=== PATIENT | female | born 1990 | race Caucasian/White ===

== ENCOUNTER 2023-07-25 13:01 | Outpatient (OUT) | payer OTHER, SELFPAY ==
[2023-07-25 14:13] LABS: Estimated Average Glucose 100 mg/dL; Glycohemoglobin A1C 5.1 % (4.5-6.2)
[2023-07-25 14:27] LABS: Thyroid Stimulating Hormone 1.393 uIU/mL (0.358-3.740)
[2023-07-26 04:10] LABS: Prolactin 6.4 ng/mL (4.8-23.3)
[2023-07-26 06:12] LABS: HCV Ab Non Reactive (Non Reactive); HIV Ab/p24 Ag Screen Non Reactive (Non Reactive); Rubella Antibodies, IgG <0.90 index (Immune >0.99); Varicella-Zoster V Ab, IgG 1291 index (Immune >165)
[2023-07-26 07:14] LABS: HBsAg Screen Negative (Negative); Hep B Core Ab, Tot Negative (Negative)
[2023-07-26 12:13] LABS: Rapid Plasma Reagin, Quant Non Reactive (NonRea<1:1)
[2023-07-27 00:06] LABS: Neisseria gonorrhoeae, NAA Negative (Negative)
[2023-07-28 18:08] LABS: Anti-Mullerian Hormone (AMH) 0.312 ng/mL (.)
== END 2023-07-25 13:02 | disposition home or self-care (01) ==
LOC: LAB 13:08
PROVIDERS: PCP Internal Medicine
DX: E28.9 Ovarian dysfunction, unspecified (principal); Z11.3 Encounter for screening for infections with a predominantly sexual mode of transmission
CPT/HCPCS: 36415; 81241; 82306; 83036; 84146; 84443; 85210; 86592; 86704; 86762; 86787; 86803; 86850; 86900; 86901; 87340; 87389; 87491; 87591

== ENCOUNTER 2024-07-29 10:59 | Emergency (ER) | payer OTHER, SELFPAY ==
[2024-07-29 11:05] VITALS: BP 112/76; PULSE 123; TEMP 36.7; O2SAT 96; BMI 23.0
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
== END 2024-07-29 13:02 | disposition home or self-care (01) ==
PROVIDERS: Emergency Provider Emergency Medicine; PCP Internal Medicine
DX: S16.1XXA Strain of muscle, fascia and tendon at neck level, initial encounter (principal); C95.90 Leukemia, unspecified not having achieved remission; V49.40XA Driver injured in collision with unspecified motor vehicles in traffic accident, initial encounter
CPT/HCPCS: 70450; 71045; 72125; 73030; 99285

== ENCOUNTER 2024-11-28 13:23 | Outpatient (OUT) | payer OTHER, SELFPAY ==
--- NOTE | 2024-11-28 13:37 | ECG_ITS ---
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
== END 2024-11-28 13:24 | disposition home or self-care (01) ==
LOC: CARD 13:24
PROVIDERS: PCP Internal Medicine; Visit Provider Internal Medicine Hematology & Oncology
DX: C92.10 Chronic myeloid leukemia, BCR/ABL-positive, not having achieved remission (principal); G89.29 Other chronic pain
CPT/HCPCS: 93005

== ENCOUNTER 2025-10-02 19:13 | Outpatient (REF) | payer OTHER, SELFPAY ==
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
--- OUTSIDE RECORDS SUMMARY | 2025-10-02 19:23 | XMS_ITS | CCD ---
Author Organization [facility] CliniSysd Care Team Providers Care Property Master Name Role Phone PHYSICIAN, DEFAULT Admitting Unavailable PHYSICIAN, DEFAULT Attending Unavailable FABY ., DR PACHECO Admitting Unavailable FABY ., DR PACHECO Attending Unavailable MISC, DR VILLALOBOS Primary Care Unavailable FABY ., DR PACHECO Consulting Unavailable Ender Earl Consulting Unavailable MAYUR, JACLYN Admitting Unavailable MAYUR, JACLYN Attending Unavailable MISC, DR VILLALOBOS Primary Care Unavailable JACLYN MERCHANT Consulting Unavailable FABY ., DR PACHECO Admitting Unavailable FABY ., DR PACHECO Attending Unavailable MISC, DR VILLALOBOS Primary Care Unavailable FABY ., DR PACHECO Consulting Unavailable Angela Parada MD Primary Care Provider Angela Parada MD Primary Care Provider LUKE CRAMER Referring Unavailable HIDAIN, ANGELA Seymour Primary Care Unavailable BELA, LUKE Fierro Referring Unavailable HIESTSTEW, ANGELA Seymour Primary Care Unavailable BELA, LUKE Fierro Attending Unavailable TAL, ANGELA Seymour Referring Unavailable ANGELA PARADA Primary Care Unavailable LUKE CRAMER Attending Unavailable ANGELA PARADA Referring Unavailable ANGELA PARADA Primary Care Unavailable ANGELA PARADA Attending Unavailable ANGELA PARADA Referring Unavailable TAL, ANGELA Seymour Primary Care Unavailable TAL, ANGELA Seymour Attending Unavailable ANGELA PARADA Referring Unavailable ANGELA PARADA Primary Care Unavailable Angela Parada MD Primary Care Provider [phone] CATHI MARTINEZ Attending Unavailable Allergies Allergy ClassificationReported Allergen(s)Allergy TypeDate of OnsetReaction(s) Facility (4 sources)Latex; Translations: [LATEX]Drug allergy (disorder)48-44-2249Xty [facility] Repository (1 source)levoFLOXacinDrug AllergyThe [facility] Repository (20 sources)Ketorolac; Translations: [KETOROLAC]Drug Xbycvax95-44-1986Jpuew [facility] (20 sources)LatexPropensity to adverse reactions to fkrp60-32-5196[facility] (20 sources)levoFLOXacin; Translations: [LEVOFLOXACIN]Drug Xydbnnl71-77-6759 [facility] (3 sources)Ketorolac trometamolPropensity to adverse weyojwxbo24-42-2328[facility] Work Phone: (3 sources)LatexAllergy to hzmrvupxr96-05-9434[facility] Medications Current Medications MedicationDrug Class(es)DatesSig (Normalized)Sig (Original)cefadroxil 1000 mg oral tablet (1 source)Cephalosporin AntibacterialStart: 07-11-2025 End: 99-54-4858kwsfwcwido (DURICEF) 1 gram tablet Indications: Tonsillitis Take 1 tablet (1 g total) by mouth in the morning for 10 days. 10 tablet 07/11/2025 07/11/2025 Discontinuedcephalexin 500 mg oral capsule (2 sources)Cephalosporin AntibacterialStart: 07-11-2025 End: 04-88-2189xath 1 capsule by mouth three times dailyCEPHalexin (KEFLEX) 500 mg capsule Take 1 capsule (500 mg total) by mouth 3 (three) times a day for10 days. 30 capsule 07/11/2025 07/21/2025 Activecetirizine hydrochloride 10 mg oral tablet (20 sources)Histamine-1 Receptor Antagonisttake 1 tablet by mouth in the morning cetirizine (ZyrTEC) 10 mg tablet Take 1 tablet (10 mg total) by mouth in the morning. Activecetirizine (ZyrTEC) 5 MG chewable tablet Chew Daily Active dasatinib 80 mg oral tablet (20 sources)Kinase InhibitorStart: 43-41-7577txjb 1 tablet by mouth once daily dasatinib (SpryceL) 80 mg chemo tablet Take 1 tablet by mouth daily 30 tablet 11 07/23/2025 ActiveStart: 58-76-2763slik 1 tablet by mouth once dailydasatinib (SpryceL) 50 mg chemo tablet Indications: CML (chronic myeloid leukemia) ([facility]- HCC) Take 1tablet by mouth daily 30 tablet 11 05/30/2025 ActiveStart: 04-05-2024 End: 35-77-5343pcdktecxs (SPRYCEL) 80 mg chemo tablet Indications: CML (chronic myeloid leukemia) ([facility]-HCC) TAKE 1TABLET DAILY 30 tablet 11 03/24/2025 Active escitalopram 20 mg oral tablet (20 sources)Serotonin Reuptake InhibitorStart: 67-69-5530jbcmccqzcylz (Lexapro) 20 MG tablet Take 30 mg by mouth in the morning. 05/05/2025 ActiveStart: 05-10-2024 End: 36-10-5978wasr 1.5 tablets by mouth in the morningescitalopram (LEXAPRO) 20 mg tablet Take 1.5 tablets (30 mg total) by mouth in the morning. 135 tablet 05/05/2025 Activeethinyl estradiol 0.035 mg / norethindrone acetate 1 mg oral tablet (20 sources)EstrogenStart: 74-88-0108iiqb 1 tablet by mouth once daily in the morningAlyacen 1/35 1-35 MG-MCG tablet Indications: control counseling TAKE 1 TABLET BY MOUTH EVERY DAY IN THE MORNING 84 tablet 3 04/23/2025 Active take 1 tablet by mouth in the morning, then take 0.05871812314751215 tablet by mouth oncenorethindrone-ethin estradioL (ALYACEN 1/35, 28,) 1-35 mg-mcg per tablet Take 1 tablet by mouth in the morning. Activefurosemide 40 mg oral tablet (20 sources)Loop DiureticStart: 11-25-2023 End: 47-97-6458tbpw 1 tablet by mouth once daily as neededfurosemide (LASIX) 40 mg tablet TAKE 1 TABLET (40 MG TOTAL) BY MOUTH DAILY NEEDED (SWELLING). 20 tablet 3 01/03/2025 Activegabapentin 300 mg oral capsule (20 sources)Anti-epileptic AgentStart: 09-19-2024 End: 18-79-7465gzhu 1 capsule by mouth three times dailygabapentin (NEURONTIN) 300 mg capsule Indications: Strain of left trapezius muscle, subsequent encou nter Take 1 capsule (300 mg total) by mouth 3 (three) times a day. 270 capsule 06/02/2025 Activemethocarbamol 750 mg oral tablet (20 sources)Muscle RelaxantStart: 08-30-2024 End: 75-81-5082zuwz 1 tablet by mouth every six hours as neededmethocarbamoL (ROBAXIN) 750 mg tablet Take 1 tablet (750 mg total) by mouth every 6 (six) hours as needed for muscle spasms. 20 tablet 08/30/2024 07/11/2025 Discontinued morphine sulfate 15 mg extended release oral tablet (20 sources)Opioid AgonistStart: 87-21-8606brkv 1 tablet by mouth three times dailymorphine (MS CONTIN) 15 mg 12 hr tablet Indications: CML (chronic myeloid leukemia) (CMS-HCC) , Pain, cancer Take 1 tablet (15 mg total) by mouth 3 (three) times a day. Max Daily Amount: 45 mg 90 tablet 08/19/2025 ActiveStart: 12-04-2024 End: 70-49-9183mryl 1 tablet by mouth three times dailymorphine CR (MS Contin) 15 MG 12 hr tablet TAKE 1 TABLET (15 MG TOTAL) BY MOUTH 3 (THREE) TIMES A DAY. MAX DAILY AMOUNT: 45 MG30 DAY SUPPLY 07/22/2025 ActiveStart: 10-24-2024 End: 92-78-8226vuwv 1 tablet by mouth three times dailymorphine (MS CONTIN) 15 mg 12 hr tablet Indications: CML (chronic myeloid leukemia) (CMS-HCC) , Pain, cancer Take 1 tablet (15 mg total) by mouth 3 (three) times a day. Max Daily Amount: 45 mg 90 tablet 11/21/2024 Activeomeprazole 20 mg delayed release oral capsule (20 sources)Proton Pump Inhibitortake 1 capsule by mouth in the morning as neededomeprazole (PriLOSEC) 20 mg capsule Take 1 capsule (20 mg total) by mouth in the morning. As needed. ActiveoxyCODONE hydrochloride 15 mg oral tablet (20 sources)Opioid AgonistStart: 32-11-5896lwrc 1 tablet by mouth five times dailyoxyCODONE (ROXICODONE) 15 mg immediate release tablet Indications: CML (chronic myeloid leukemia) (CMS-HCC) , Pain, cancer Take 1 tablet (15 mg total) by mouth 5 (five) times a day. Max Daily Amount:75 mg 150 tablet 08/19/2025 ActiveStart: 10-24-2024 End: 75-34-7972hsze 1 tablet by mouth five times dailyoxyCODONE (Roxicodone) 15 MG immediate release tablet TAKE 1 TABLET (15 MG TOTAL) BY MOUTH 5 (FIVE)TIMES A DAY. MAX DAILY AMOUNT: 75 MG30 DAY SUPPLY 07/30/2025 Active Problems Active Problems Problem ClassificationProblemDateDocumented DateEpisodic/ChronicAcute and chronic tonsillitis (8 sources)Amygdalolith; Translations: [Other chronic diseases of tonsils and adenoids]03-03-4089AvjfmvnVvega and chronic tonsillitis (1 source)Tonsillitis; Translations: [Acute tonsillitis, unspecified]07-11-2025 EpisodicAnxiety disorders (20 sources)Anxiety; Translations: [Anxiety disorder, unspecified]Onset: 321022-01-9839ExvsbjjXwueogqkocrem and screening for infectious disease (1 source)Encounter for screening for human papillomavirus (HPV); Translations: [ENC SCREENING HUMAN PAPILLOMAVIRUS]Onset: 80-39-7509EibkzxfnIfxnybxea (20 sources)Chronic myeloid leukemia; Translations: [Chronic myeloid leukemia, BCR/ABL-positive, not having achieved remission]Onset: ChronicMenstrual disorders (7 sources)Amenorrhea, unspecified; Translations: [Amenorrhea]Onset: 02-24-2023 ChronicMood disorders (20 sources)Depressive disorder; Translations: [Depression]Onset: 08-04-2025 16-89-7281UdekrfwHhjha nervous system disorders (13 sources)Pain due to neoplastic disease; Translations: [Neoplasm related pain (acute) (chronic)]65-96-4285EceuavtZigqb nervous system disorders (20 sources)Chronic pain; Translations: [Other chronic pain]Onset: 10-30-2020 03-32-7669LqtvuwcRnjvn nervous system disorders (1 source)Other chronic pain; Translations: [Other chronic pain]Onset: 05-15-5678FjtradxQqzlq nervous system disorders (1 source)Neoplasm related pain (acute) (chronic); Translations: [Neoplasm related pain (acute) (chronic)]Onset: 09-46-5358GminblfFpmmg screening for suspected conditions (not mental disorders or infectious disease) (4 sources)Encounter for screening for malignant neoplasm of cervix; Translations: [ENC SCREENING MALIG NEOPLASM CERV]Onset: 59-08-8012NitqvaxdAzyjl upper respiratory disease (1 source)Pain in throatOnset: 37-43-9868IahryfykFtaakwww codes; unclassified (1 source)Chronic qwst92-32-6698AqyayqtmFdkalzy and strains (3 sources)Strain of left trapezius muscle; Translations: [Strain of other muscles, fascia and tendons at shoulder and upper arm level, left arm, subsequent encounter]84-57-8138Zkethdkv Past or Other Problems Problem ClassificationProblemDateDocumented DateEpisodic/ChronicMood disorders (20 sources)Mood disordersOnset: 03-23-2023 Resolved: Results Test NameValueInterpretationReference RangeFacilityBCR/ABL BY PCR WITH REFLEXon 18-85-1397CPM ABL BY PCR QUALSEE COMMENTSNormalProMedica Toledo HospitalComment on above:Result Comment: Test Result Flag Unit RefValue BCR/ABL1 Reflex, Qual/Quant Specimen Type blood BCR/ABL1 Reflex Result see interpretation Interpretation SEE COMMENTS Peripheral blood, BCR/ABL1 mRNA analysis, qualitative: Negative. No BCR/ABL1 mRNA transcripts were detected. Method summary: The presence or absence of BCR/ABL1 mRNA transcripts was evaluated using a qualitative, reverse comb setter PCR-based assay. The assay detects nearly all published and theoretical BCR/ABL1 fusion forms including the common e13/e14-a2 (p210) and e1-a2 (p190) transcripts, as well as other rarer variants (e.g. e19-a2 (p230), e13/e14-a3, e1-a3, etc.). The limit of detection for this assay is 0.1%. Please contact the lab at [phone] with questions or if additional testing is required. See [facility] Test Catalog for additional method details. Signing Pathologist: Silvano Pelayo M.D. ADDITIONAL INFORMATION This test was developed and its performance characteristics determined by [facility] in a manner consistent with CLIA requirements. This test has not been cleared or approved by the U.S. Food and Drug Administration. Test Performed by: [facility] - [address] [address] Circus Laborer: Silva Montalvo Ph.D.; CLIA# [id number] By: #### BCRFX #### [facility] ([facility]) [address] [place] [address] VIRCBC WITH AUTO DIFFERENTIALon 77-80-4904GLXNKFXRB ABSOLUTE COUNT (10*3/UL) BY AUTOMATED COUNT0.1 10*3/uLNormal0.0-0.2ProMedica [place]edo HospitalComment on above:Order Comment: Abnormal CBC with auto diff reflexes to a manual diffPerformed By: #### CBCA #### [facility] ([facility]) [address] [place] [address] VIRBASOPHILS RELATIVE PERCENT BY AUTOMATED COUNT0.8 %Normal [facility] HospitalComment on above:Order Comment: Abnormal CBC with auto diff reflexes to a manual diffPerformed By: #### CBCA #### [facility] ([facility]) [address] [place] [address] VIRCELLAVISION DIFFERENTIAL TYPEAUTOMATED DIFFERENTIALNormal [facility] HospitalComment on above:Order Comment: Abnormal CBC with auto diff reflexes to a manual diffPerformed By: #### CBCA #### [facility] ([facility]) [address] [place] [address] VIREosinophils (Bld) [#/Vol]0.2 10*3/uLNormal0.0-0.4ProCoshocton Regional Medical Centerca Toledo HospitalComment on above:Order Comment: Abnormal CBC with auto diff reflexes to a manual diffPerformed By: #### CBCA #### [facility] ([facility]) [address] [place] [address] VIREOSINOPHILS RELATIVE PERCENT BY AUTOMATED COUNT3.1 %Normal [facility] HospitalComment on above:Order Comment: Abnormal CBC with auto diff reflexes to a manual diffPerformed By: #### CBCA #### [facility] ([facility]) [address] [place] [address] VIRErythrocyte distribution width (RBC) [Ratio]14.2 %Normal 11.5-15ProGreene Memorial HospitalComment on above:Order Comment: Abnormal CBC with auto diff reflexes to a manual diffPerformed By: #### CBCA #### [facility] ([facility]) [address] [place] [address] VIRHematocrit (Bld) [Volume fraction]44.9 %Rbguug15-63DrxKxycbpGreene Memorial HospitalComment on above:Order Comment: Abnormal CBC with auto diff reflexes to a manual diffPerformed By: #### CBCA #### [facility] ([facility]) [address] [place] [address] VIRHemoglobin (Bld) [Mass/Vol]15.5 g/wONudhbo77.7-15.5PMercy Health Kings Mills HospitalCombeaumont hospital on above:Order Comment: Abnormal CBC with auto diff reflexes to a manual diffPerformed By: #### CBCA #### [facility] ([facility]) [address] [place] [address] VIRLYMPHOCYTES ABSOLUTE COUNT (10*3/UL) BY AUTOMATED COUNT3.2 10*3/uLNormal1.0-3.5PMercy Health Kings Mills HospitalCombeaumont hospital on above:Order Comment: Abnormal CBC with auto diff reflexes to a manual diffPerformed By: #### CBCA #### [facility] ([facility]) [address] [place] [address] VIRLYMPHOCYTES RELATIVE PERCENT BY AUTOMATED COUNT45.7 %Normal [facility] HospitalComment on above:Order Comment: Abnormal CBC with auto diff reflexes to a manual diffPerformed By: #### CBCA #### [facility] ([facility]) [address] [place] [address] VIRH (RBC) [Entitic mass]34.0 thNqnwff04-57JeaKazvxtGreene Memorial HospitalComment on above:Order Comment: Abnormal CBC with auto diff reflexes to a manual diffPerformed By: #### CBCA #### [facility] ([facility]) [address] [place] [address] VIRMCHC (RBC) [Mass/Vol]34.5 g/mFShcvsi90-72GezXzitdkGreene Memorial HospitalComment on above:Order Comment: Abnormal CBC with auto diff reflexes to a manual diffPerformed By: #### CBCA #### [facility] ([facility]) [address] [place] [address] VIRV (RBC) [Entitic vol]99 xECjejyy93-501RrzSnizjeGreene Memorial HospitalComment on above:Order Comment: Abnormal CBC with auto diff reflexes to a manual diffPerformed By: #### CBCA #### [facility] ([facility]) [address] [place] [address] VIRMONOCYTES ABSOLUTE COUNT (10*3/UL) BY AUTOMATED COUNT0.3 10*3/uLNormal0.0-0.9[facility] HospitalComment on above:Order Comment: Abnormal CBC with auto diff reflexes to a manual diffPerformed By: #### CBCA #### [facility] ([facility]) [address] [place] [address] VIRMONOCYTES RELATIVE PERCENT BY AUTOMATED COUNT4.0 %Normal ProMMcKitrick HospitalComment on above:Order Comment: Abnormal CBC with auto diff reflexes to a manual diffPerformed By: #### CBCA #### [facility] ([facility]) [address] [place] [address] VIRNEUTROPHILS ABSOLUTE COUNT BY AUTOMATED COUNT3.2 10*3/uL Normal1.5-6.6ProGreene Memorial HospitalComment on above:Order Comment: Abnormal CBC with auto diff reflexes to a manual diffPerformed By: #### CBCA #### [facility] ([facility]) [address] [place] [address] VIRNEUTROPHILS RELATIVE PERCENT BY AUTOMATED COUNT46.4 %Normal [facility] HospitalCombeaumont hospital on above:Order Comment: Abnormal CBC with auto diff reflexes to a manual diffPerformed By: #### CBCA #### [facility] ([facility]) [address] [place] [address] VIRPlatelet mean volume (Bld) [Entitic vol]7.5 fLNormal7-12 [facility] HospitalCombeaumont hospital on above:Order Comment: Abnormal CBC with auto diff reflexes to a manual diffPerformed By: #### CBCA #### [facility] ([facility]) [address] [place] [address] VIRPlatelets (Bld) [#/Vol]350 10*3/gUEgssap052-854VueZmptsxGreene Memorial HospitalComment on above:Order Comment: Abnormal CBC with auto diff reflexes to a manual diffPerformed By: #### CBCA #### [facility] ([facility]) [address] [place] [address] VIRRBC COUNT4.55 X10E12/LNormal3.8-5.2Pro[facility] HospitalCombeaumont hospital on above:Order Comment: Abnormal CBC with auto diff reflexes to a manual diffPerformed By: #### CBCA #### [facility] ([facility]) [address] [place] [address] VIRWBC (Bld) [#/Vol]7.0 10*3/uLNormal4-11ProGreene Memorial HospitalCombeaumont hospital on above:Order Comment: Abnormal CBC with auto diff reflexes to a manual diffPerformed By: #### CBCA #### [facility] ([facility]) [address] [place] [address] VIRCOMPREHENSIVE METABOLIC PANELon 85-48-3495Gtcopfa [Mass/Vol] 4.5 g/dLNormal3.2-5.3PProMedica Toledo Hospital HospitalComment on above: Performed By: #### CMP #### [facility] ([facility]) [address] [place] [address] VIRALP [Catalytic activity/Vol]48 U/PEejlwy36-633AtjBqszlyVan Wert County Hospital HospitalComment on above:Performed By: #### CMP #### [facility] ([facility]) [address] [place] [address] VIRALT [Catalytic activity/Vol]27 U/LNormal<=31PProMedica [facility] Hospital HospitalComment on above:Performed By: #### CMP #### [facility] ([facility]) [address] [place] [address] VIRAnion gap [Moles/Vol]10 mmol/LNormal5-15ProVan Wert County Hospital HospitalComment on above:Performed By: #### CMP #### [facility] ([facility]) [address] [place] [address] VIRAST [Catalytic activity/Vol]24 U/LNormal<=41ProGreene Memorial HospitalComment on above:Performed By: #### CMP #### [facility] ([facility]) [address] [place] [address] VIRBilirubin [Mass/Vol]0.3 mg/dLNormal0.3-1.2PProMedica [facility]edo Hospital HospitalComment on above:Performed By: #### CMP #### [facility] ([facility]) [address] [place] [address] VIRCalcium [Mass/Vol]9.2 mg/dLNormal8.5-10.5PProMedica Toledo Hospital HospitalComment on above:Performed By: #### CMP #### [facility] ([facility]) [address] [place] [address] VIRChloride [Moles/Vol]106 mmol/QCeyydi58-734HmcDzmavtGreene Memorial HospitalComment on above:Performed By: #### CMP #### [facility] ([facility]) [address] [place] [address] VIRCO2 [Moles/Vol]26 mmol/ELgwjqe28-74BdmJeyjdwBethesda North HospitalComment on above:Performed By: #### CMP #### [facility] ([facility]) [address] [place] [address] VIRCreatinine [Mass/Vol]0.87 mg/dLNormal0.40-1.00ProGreene Memorial HospitalComment on above:Result Comment: METHOD TRACEABLE TO IDMS STANDARDPerformed By: #### CMP #### [facility] ([facility]) [address] [place] [address] VIRGFR/1.73 sq M.predicted among non-blacks MDRD (S/P/Bld) [Vol rate/Area]90 mL/min/{1.73_m2}Normal>=60[facility] Comment on above:Result Comment: Reported eGFR is based on the CKD-EPI 2020 equation that does not use a race coefficient.Performed By: #### CMP #### [facility] ([facility]) [address] [place] [address] VIRGlucose [Mass/Vol]96 mg/fXUjkjdn29-31ZexAofaglGreene Memorial HospitalComment on above:Performed By: #### CMP #### [facility] ([facility]) [address] [place] [address] VIRPotassium [Moles/Vol]4.2 mmol/LNormal3.5-5.0ProGreene Memorial HospitalComment on above:Performed By: #### CMP #### [facility] ([facility]) [address] [place] [address] VIRProtein [Mass/Vol]7.4 g/dLNormal6.0-8.0[facility] HospitalComment on above:Performed By: #### CMP #### [facility] ([facility]) [address] [place] [address] VIRSodium [Moles/Vol]142 mmol/CEvhqil155-897WvtUbfnljVan Wert County Hospital HospitalComment on above:Performed By: #### CMP #### [facility] ([facility]) [address] [place] [address] VIRUrea nitrogen [Mass/Vol]13 mg/dLNormal5-23ProVan Wert County Hospital HospitalComment on above:Performed By: #### CMP #### [facility] ([facility]) [address] [place] [address] VIRCBC AND AUTO DIFFon 39-49-6091WIRFSFWG BASOPHIL0.0 X10E9/L Normal0.0-0.2Pro[facility] HospitalComment on above:Performed By: #### [id number] #### [facility] ([id number]) [address] [place] [address] #### CMP, CBCA #### [facility] ([id number]) [address] [place], [place] [address]WVRDGEEN NEUTROPHIL3.5 X10E9/LNormal1.5-6.6ProGreene Memorial HospitalComment on above:Performed By: #### 75935-6 #### [facility] ([id number]) [address] [place] [address] #### CMP, CBCA #### [facility] ([id number]) [address] [place], [place] [address]Nzotapcqq/100 WBC (Bld)0.6 %NormalProGreene Memorial HospitalComment on above:Performed By: #### [id number] #### [facility] ([id number]) [address] [place], [place] [address] #### CMP, CBCA #### [facility] ([id number]) [address] [facility], [address] [place], [place] [address]Fanahtsjoas (Bld) [#/Vol]0.3 10*3/uLNormal0.0-0.4ProGreene Memorial HospitalComment on above:Performed By: #### 75420-1 #### [facility] ([id number]) [address] [place], [place] [address] #### CMP, CBCA #### [facility] ([id number]) [address] [facility] [facility], [address] [place], [place] [address]Dbevrmhxulk/100 WBC (Bld)3.6 %NormalProGreene Memorial HospitalComment on above:Performed By: #### 07400-2 #### [facility] ([id number]) [address] [place], [place] [address] #### CMP, CBCA #### [facility] ([id number]) [address] [place] [address], [address] [place], [place] [address]Zacshcsbzvt distribution width (RBC) [Ratio]13.3 %Normal 11.5-15.0ProGreene Memorial HospitalComment on above:Performed By: #### 09171-0 #### [facility] ([id number]) [address] [place], [place] [address] #### CMP, CBCA #### [facility] ([id number]) [address] [facility], [address] [place], [place] [address]Atgzfkewvt (Bld) [Volume fraction]40.5 %Hhidtk75-02XpcWdmkxrGreene Memorial HospitalComment on above:Performed By: #### 18309-8 #### [facility] ([id number]) [address] [place], [place] [address] #### CMP, CBCA #### [facility] ([id number]) [address] [place] [address], [address] [place], [place] [address]Bshvisculy (Bld) [Mass/Vol]14.1 g/uVHixtcw48.7-15.5ProMedParkview Health HospitalComment on above:Performed By: #### 28484-0 #### [facility] ([id number]) [address] [place] [address] #### CMP, CBCA #### [facility] ([id number]) [address], [address] [place], [place] [address]Kpdaqvvkqas (Bld) [#/Vol]3.3 10*3/uLNormal1.0-3.5PMercy Health Kings Mills HospitalComment on above:Performed By: #### 31076-5 #### [facility] ([id number]) [address] [place] [address] #### CMP, CBCA #### [facility] ([id number]) [address], [address] [place], [place] [address]Xpujqfimdlv/100 WBC (Bld)44.6 %NormalProGreene Memorial HospitalComment on above:Performed By: #### 58626-9 #### [facility] ([id number]) [address] [place], [place] [address] #### CMP, CBCA #### [facility] ([id number]) [address], [address] [place], [place] [address]UQP (RBC) [Entitic mass]34.5 tjJcaj45-36FzfKclyukGreene Memorial HospitalComment on above:Performed By: #### 38440-6 #### [facility] ([id number]) [address] [place] [address] #### CMP, CBCA #### [facility] ([id number]) [address], [address] [place], [place] [address]XFDT (RBC) [Mass/Vol]34.9 g/gUOxqisz28-57JcsZpizglVan Wert County Hospital HospitalComment on above:Performed By: #### 83524-4 #### [facility] ([id number]) [address] [place] [address] #### CMP, CBCA #### [facility] ([id number]) [address], [address] [place], [place] [address]ABO (RBC) [Entitic vol]99 cSMcjcmw31-406YfxCfxnzjVan Wert County Hospital HospitalComment on above:Performed By: #### 29171-1 #### [facility] ([id number]) [address] [place] [address] #### CMP, CBCA #### [facility] ([id number]) [address] [facility], [address] [place], [place] [address]Fupzllhyc (Bld) [#/Vol]0.4 10*3/uLNormal0-0.9ProVan Wert County Hospital HospitalComment on above:Performed By: #### 03931-0 #### [facility] ([id number]) [address] [place] [address] #### CMP, CBCA #### [facility] ([id number]) [address] [facility], [address] [place], [place] [address]Huzeiwdwh/100 WBC (Bld)5.0 %NormalProVan Wert County Hospital HospitalComment on above:Performed By: #### 44205-6 #### [facility] ([id number]) [address] [place] [address] #### CMP, CBCA #### [facility] ([id number]) [address], [address] [place], [place] [address]Zcpwfihfdon/100 WBC (Bld)46.2 %NormalProVan Wert County Hospital HospitalComment on above:Performed By: #### 13122-7 #### [facility] ([id number]) [address] [place] [address] #### CMP, CBCA #### [facility] ([id number]) [address] [facility], [address] [place], [place] [address]Hrigyrxg mean volume (Bld) [Entitic vol]6.9 fLLow7-12[facility] HospitalComment on above:Performed By: #### 58000-6 #### [facility] ([id number]) [address] [place] [address] #### CMP, CBCA #### [facility] ([id number]) [address] [facility], [address] [place], [place] [address]Fzncsvvmi (Bld) [#/Vol]326 10*3/dUEtsefp630-788RtlBkzwfgVan Wert County Hospital HospitalComment on above:Performed By: #### 04445-4 #### [facility] ([id number]) [address] [place], [place] [address] #### CMP, CBCA #### [facility] ([id number]) [address] [facility], [address] [place], [place] [address]AEK COUNT4.10 X10E12/LNormal3.80-5.20ProGreene Memorial HospitalComment on above:Performed By: #### 70908-5 #### [facility] ([id number]) [address] [place] [address] #### CMP, CBCA #### [facility] ([id number]) [address] [facility], [address] [place], [place] [address]REI (Bld) [#/Vol]7.5 10*3/uLNormal4.0-11.0ProGreene Memorial HospitalComment on above:Performed By: #### 83277-0 #### [facility] ([id number]) [address] [place] [address] #### CMP, CBCA #### [facility] ([id number]) [address], [address] [place], [place] [address]MTZGQUBWCXWKC METABOLIC PANELon 95-63-7284Ctqsdpt [Mass/Vol]4.1 g/dLNormal3.2-5.3[facility] HospitalComment on above:Performed By: #### 18756-2 #### [facility] ([id number]) [address] [place], [place] [address] #### CMP, CBCA #### [facility] ([id number]) [address] [facility], [address] [place], [place] [address]AKZ [Catalytic activity/Vol]47 U/ULhjsus54-624TpgWqrbxdVan Wert County Hospital HospitalComment on above:Performed By: #### 86241-4 #### [facility] ([id number]) [address] [place] [address] #### CMP, CBCA #### [facility] ([id number]) [address] [facility], [address] [place], [place] [address]VQX [Catalytic activity/Vol]18 U/LNormal0-31ProMedParkview Health HospitalComment on above:Performed By: #### 00376-7 #### [facility] ([id number]) [address] [place], [place] [address] #### CMP, CBCA #### [facility] ([id number]) [address], [address] [place], [place] [address]Rzuad gap [Moles/Vol]6 mmol/LNormal5-15ProVan Wert County Hospital HospitalComment on above:Performed By: #### 47039-2 #### [facility] ([id number]) [address] [place], [place] [address] #### CMP, CBCA #### [facility] ([id number]) [address] [facility], [address] [place], [place] [address]RMR [Catalytic activity/Vol]23 U/LNormal0-41ProMediCincinnati [facility]riners Hospital HospitalComment on above:Performed By: #### 46111-5 #### [facility] ([id number]) [address] [place], [place] [address] #### CMP, CBCA #### [facility] ([id number]) [address], [address] [place], [place] [address]Iriozsnkm [Mass/Vol]0.2 mg/dLLow0.3-1.2[facility] HospitalComment on above:Performed By: #### 31705-3 #### [facility] ([id number]) [address] [place], [place] [address] #### CMP, CBCA #### [facility] ([id number]) [address] [facility], [address] [place], [place] [address]Nztcvmd [Mass/Vol]9.1 mg/dLNormal8.5-10.5[facility] HospitalComment on above:Performed By: #### 63557-5 #### [facility] ([id number]) [address] [place], [place] [address] #### CMP, CBCA #### [facility] ([id number]) [address] [facility], [address] [place], [place] [address]Jdzeupdr [Moles/Vol]99 mmol/YQevkum81-061CbiIiqckw [facility] HospitalComment on above:Performed By: #### 98215-6 #### [facility] ([id number]) [address] [place], [place] [address] #### CMP, CBCA #### [facility] ([id number]) [address], [address] [place], [place] [address]XF5 [Moles/Vol]34 mmol/WFbvm21-56MjhEzcapbParkview Health HospitalComment on above:Performed By: #### 62240-0 #### [facility] ([id number]) [address] [place], [place] [address] #### CMP, CBCA #### [facility] ([id number]) [address] [facility], [address] [place], [place] [address]Zhtaajbilp [Mass/Vol]0.93 mg/dLNormal0.40-1.00ProGreene Memorial HospitalComment on above:Result Comment: METHOD TRACEABLE TO IDMS STANDARDPerformed By: #### 41532-7 #### [facility] ([id number]) [address] [place], [place] [address] #### RAISSA CBCA #### [facility] ([id number]) [address] [facility], [address] [place], [place] [address]BKZ/1.73 sq M.predicted among non-blacks MDRD (S/P/Bld) [Vol rate/Area]83 mL/min/{1.73_m2}Normal>59ProGreene Memorial Hospital Comment on above:Result Comment: Reported eGFR is based on the CKD-EPI 2020 equation that does not use a race coefficient.Performed By: #### 28402-9 #### [facility] ([id number]) [address] [place], [place] [address] #### RAISSA CBCA #### [facility] ([id number]) [address] [facility], [address] [place], [place] [address]Yblmbmz [Mass/Vol]71 mg/tAJvwxsc02-11NwrGlrzggGreene Memorial HospitalComment on above:Performed By: #### 41538-3 #### [facility] ([id number]) [address] [place], [place] [address] #### RAISSA CBCA #### [facility] ([id number]) [address] [facility], [address] [place], [place] [address]Dxfmkxvyf [Moles/Vol]4.4 mmol/LNormal3.5-5.0ProGreene Memorial HospitalComment on above:Performed By: #### 68192-5 #### [facility] ([id number]) [address] [place] [address] #### CMP, CBCA #### [facility] ([id number]) [address] [place] [address], [address] [place] [address]Cjdyxbr [Mass/Vol]7.2 g/dLNormal6.0-8.0ProGreene Memorial HospitalComment on above:Performed By: #### 31770-2 #### [facility] ([id number]) [address] [place] [address] #### CMP, CBCA #### [facility] ([id number]) [address] [place] [address], [address] [place] [address]Arstgz [Moles/Vol]139 mmol/UJlgzlk115-232WlvIjwzmpGreene Memorial HospitalComment on above:Performed By: #### 72941-7 #### [facility] ([id number]) [address] [place], [place] [address] #### CMP, CBCA #### [facility] ([id number]) [address] [place] [address], [address] [place], [place] [address]Lmwf nitrogen [Mass/Vol]16 mg/dLNormal5-23ProGreene Memorial HospitalComment on above:Performed By: #### 46846-1 #### [facility] ([id number]) [address] [place] [address] #### CMP, CBCA #### [facility] ([id number]) [address] [place] [address], [address] [place], [place] [address]Rbnbcquid diagnostic report Molgen Jose (Bld/Tiss) [Interp]on 90-56-2711KMB/ABL PCR w/ReflexSEE COMMENTS 11/28/2024 04:25 PMNormalProGreene Memorial HospitalComment on above:Result Comment: NOTE Test Result Flag Unit RefValue BCR/ABL1 Reflex, Qual/Quant Specimen Type WHOLE BLOOD BCR/ABL1 Reflex Result see interpretation Interpretation See Note Peripheral blood, BCR/ABL1 mRNA analysis, qualitative: Negative. No BCR/ABL1 mRNA transcripts were detected. Method summary: The presence or absence of BCR/ABL1 mRNA transcripts was evaluated using a qualitative, reverse comb setter PCR-based assay. The assay detects nearly all published and theoretical BCR/ABL1 fusion forms including the common e13/e14-a2 (p210) and e1-a2 (p190) transcripts, as well as other rarer variants (e.g. e19-a2 (p230), e13/e14-a3, e1-a3, etc.). The limit of detection for this assay is 0.1%. Please contact the lab at [phone] with questions or if additional testing is required. See [facility] Test Catalog for additional method details. Signing Pathologist: Leticia Ramos ADDITIONAL INFORMATION This test was developed and its performance characteristics determined by [facility] in a manner consistent with CLIA requirements. This test has not been cleared or approved by the U.S. Food and Drug Administration. Test Performed by: [facility] [place] [address] Circus Laborer: Silva Montalvo Ph.D.; CLIA# [id number] By: #### 81420- 7 #### [facility] ([id number]) [address] [place] [address] #### CMP, CBCA #### [facility] ([id number]) [address] [place] [address], [address] [place], [place] [address]OPZV-SNNMXKNFG HORMONEon 97-68-8466Gdms-Mullerian Hormone (AMH) 0.345 ng/mLNMemorial Health System Selby General HospitalComment on above:Result Comment: For assays employing antibodies, the possibility exists for interference by heterophile antibodies in the samples.1 1.Timothy Mcdaniel Interferences in Immunoassays - still a threat. Clin. Chem. 2000; 46: 8806-1344. This test was developed and its performance characteristics determined by [employer]. It has not been cleared or approved by the Food and Drug Administration. Reference Range: Females 31 - 35y: 0.66 - 8.75 Median 3.00 AMH concentrations of >= 1.06 ng/mL is correlated with a better response to ovarian stimulation, produced more retrievable oocytes and higher odds of live according to Davy et al. Fertility and Sterility. 2010: 94:7535-6217. The current AMH test method correlates with the study method with a slope of 0.94. Females at risk of ovarian hyperstimulation syndrome or polycystic ovarian syndrome (PCOS) may exhibit elevated serum AMH concentrations. AMH levels from PCOS patients may be 2 to 5 fold higher than age-appropriate reference interval values. Granulosa cell tumors of the ovary may secrete AMH along with other tumor markers. Elevated AMH is not specific for malignancy, and the assay should not be used exclusively to diagnose or exclude an AMH-secreting ovarian tumor.Performed By: #### AMAHORE #### [facility] [address] [place] [address] Dr. Igor Buitrago ACOG PANEL 2: 30 to 65on 03-01-2023..NormalThe [facility] HospitalComment on above:Result Comment: Performed at: WBPerformed By: #### [id number] #### [facility] [address] [place] [address] Dr. Igor Branch Gdln ACOG Pcmdrby47-25JuedlwClfDayton Children's HospitalComment on above:Performed By: #### [id number] #### [facility] [address] [place] [address] Dr. Igor ButlerDIAGNOSIS:CommentNormSelect Medical [facility], [facility] on above: Result Comment: NEGATIVE FOR INTRAEPITHELIAL LESION OR MALIGNANCY. Performed at: WBPerformed By: #### [id number] #### [facility] [address] [place] [address] Dr. Igor ButlerHPChapis AptimaPositiveAbnormalNegativeMercy Health St. Anne HospitalCombeaumont hospital on above:Result Comment: This nucleic acid amplification test detects fourteen high-risk HPV types (16,18,31,33,35,39,45,51,52,56,58,59,66,68) without differentiation. Performed at: =GPerformed By: #### [id number] #### [facility] [address] [place] [address] Dr. Igor Rogers Genotype 16NegativeNormalNegativeMercy Health St. Anne HospitalComment on above:Performed By: #### [id number] #### [facility] [address] [place] [address] Dr. Igor Rogers Genotype 18,45NegativeNormalNegativeMercy Health St. [facility] Hospital Comment on above:Performed By: #### [id number] #### [facility] [address] [place] [address] Dr. Igor Rogers Genotype ReflexCommentMiami Valley HospitalCombeaumont hospital on above:Result Comment: Criteria met, see HPV Genotype results. Performed at: WBPerformed By: #### [id number] #### [facility] [address] [place] [address] Dr. Igor ButlerMethmariamaology:CommentOhioHealth Van Wert Hospital on above: Result Comment: This liquid based ThinPrep(R) pap test was screened with the use of an image guided system. Performed at: WBPerformed By: #### [id number] #### [facility] [address] [place] [address] Dr. Igor Simmons:CommentOhioHealth Van Wert Hospital on above:Result Comment: The Pap smear is a screening test designed to aid in the detection of premalignant and malignant conditions of the uterine cervix. It is not a diagnostic procedure and should not be used as the sole means of detecting cervical cancer. Both false-positive and false-negative reports do occur. . Performed at: WBPerformed By: #### [id number] #### [facility] [address] [place] [address] Dr. Igor ButlerPerformed by:CommentOhioHealth Van Wert Hospital on above: Result Comment: Praveen Strickland, Development Trainer (ASCP) Performed at: WBPerformed By: #### [id number] #### [facility] [address] [place] [address] Dr. Igor Hillimemiah adequacy:CommentNoMarietta Osteopathic ClinicComment on above:Result Comment: Satisfactory for evaluation. Endocervical and/or squamous metaplastic cells (endocervical component) are present. Performed at: WBPerformed By: #### [id number] #### [facility] [address] [place] [address] Dr. Igor ButlerFSHomiah 18-22-6896CNN6.6 mIU/mLNormalThe [facility] HospitalComment on above:Result Comment: Adult Female: Follicular phase 3.5 - 12.5 Ovulation phase 4.7 - 21.5 Luteal phase 1.7 - 7.7 Postmenopausal 25.8 - 134.8Performed By: #### LBCFSH #### [facility] [address] [place] [address] Dr. Igor ButlerLUTEINIZING HORMONE (LH)on 36-93-1907WM<0.3NormDayton Children's HospitalComment on above:Result Comment: Adult Female: Follicular phase 2.4 - 12.6 Ovulation phase 14.0 - 95.6 Luteal phase 1.0 - 11.4 Postmenopausal 7.7 - 58.5Performed By: #### LBCLH #### [facility] [address] [place] [address] Dr. Igor ButlerPROLACTINon 38-89-5957Qfclwiscj1.7 ng/mLNormal4.8-23.3The [facility] HospitalComment on above:Performed By: #### PROLAC #### [facility] [address] [place] [address] Dr. Igor ButlerCBC AUTO DIFFon 91-85-6661EDOO #0.1 103/ulNormal0.0-0.1The [facility] HospitalComment on above:Performed By: #### CBC #### [facility] [address] [place] [address] Dr. Igor ButlerBasophils/100 WBC (Bld)0.3 %Normal0.2-2.0The [facility] Comment on above:Performed By: #### CBC #### [facility] [address] [place] [address] Dr. Igor Gomez #0.1 103/ulNormal0.0-0.7The [facility] HospitalComment on above: Performed By: #### CBC #### [facility] [address] [place] [address] Dr. Igor Moonosinophils/100 WBC (Bld)0.8 %Critically low0.9-7.0The [facility] HospitalComment on above:Performed By: #### CBC #### [facility] [address] [place] [address] Dr. Igor Burnettthrocyte distribution width (RBC) [Ratio]13.0 %Pvrdde13.0-15.0 The [facility] HospitalComment on above:Performed By: #### CBC #### [facility] [address] [place] [address] Dr. Igor ButlerHematocrit (Bld) [Volume fraction]36.5 %Wscqiv44.0-48.0The [facility] HospitalComment on above:Performed By: #### CBC #### [facility] [address] [place] [address] Dr. Igor ButlerHemoglobin (Bld) [Mass/Vol]12.4 g/oKZdmznt75.0-16.0The [facility] HospitalComment on above:Performed By: #### CBC #### [facility] [address] [place] [address] Dr. Igor Galicia #0.04 10e3/ulCritically high0.00-0.03The [facility] Comment on above:Performed By: #### CBC #### [facility] [address] [place] [address] Dr. Igor Galicia %0.3 %Normal0.0-0.5The [facility] HospitalComment on above: Performed By: #### CBC #### [facility] [address] [place] [address] Dr. Yilan ChangLYMPH #3.8 103/ulNormal1.2-3.8The [facility] HospitalComment on above:Performed By: #### CBC #### [facility] [address] [place] [address] Dr. Igor Fernándezmphocytes/100 WBC (Bld)24.2 %Iqbkmm05.5-60.0The [facility] HospitalComment on above:Performed By: #### CBC #### [facility] [address] [place] [address] Dr. Igor Pearson DIFF REQNONormalThe [facility] HospitalComment on above: Performed By: #### CBC #### [facility] [address] [place] [address] Dr. Igor Mabry (RBC) [Entitic mass]33.1 koAtdhlg96.7-34.0The [facility] HospitalComment on above:Performed By: #### CBC #### [facility] [address] [place] [address] Dr. Igor Tam (RBC) [Mass/Vol]34.0 g/aCGpcgkv93.9-35.2The [facility] HospitalComment on above:Performed By: #### CBC #### [facility] [address] [place] [address] Dr. Igor Burgess (RBC) [Entitic vol]97.3 xAQcdpte26.0-99.0The [facility] HospitalComment on above:Performed By: #### CBC #### [facility] [address] [place] [address] Dr. Igor Duke #0.7 103/ulNormal0.3-0.8The [facility] HospitalComment on above:Performed By: #### CBC #### [facility] [address] [place] [address] Dr. Igor Lucioocytes/100 WBC (Bld)4.7 %Normal1.7-12.0The [facility] Comment on above:Performed By: #### CBC #### [facility] [address] [place] [address] Dr. Igor Diaz #10.9 103/ulCritically high1.4-6.5The [facility] Comment on above:Performed By: #### CBC #### [facility] [address] [place] [address] Dr. Igor Juarezutrophils/100 WBC (Bld)69.7 %Xmfodz09.0-75.0The [facility] HospitalComment on above:Performed By: #### CBC #### [facility] [address] [place] [address] Dr. Igor Danielslet mean volume (Bld) [Entitic vol]8.5 fLCritically low 9.5-13.5The [facility] HospitalComment on above:Performed By: #### CBC #### [facility] [address] [place] [address] Dr. Igor ButlerPLT262 103/suHnzjfo881-112Rmo [facility] HospitalComment on above: Performed By: #### CBC #### [facility] [address] [place] [address] Dr. Igor ButlerRBC3.75 106/ulCritically low4.20-5.40The [facility] HospitalComment on above:Performed By: #### CBC #### [facility] [address] [place] [address] Dr. Igor ButlerWBC15.6 103/ulCritically high4.0-11.0[facility] Health St. Anne HospitalComment on above:Performed By: #### CBC #### [facility] [address] [place] [address] Dr. Igor Han T4on 41-61-7862Xeum T4 [Mass/Vol]0.89 ng/dLNormal0.76-1.46 The [facility] HospitalComment on above:Performed By: #### FT4 #### [facility] [address] [place] [address] Dr. Igor Ravi 69-29-4307BNN3.582 uIU/mLNormal0.358-3.740The [facility] HospitalComment on above:Performed By: #### TSH #### [facility] [address] [place] [address] Dr. Igor ButlerUS PELVIS AND TRANSVAGon 36-36-3323FH PELVIS AND TRANSVAG EXAMINATION: US PELVIS AND TRANSVAG HISTORY: Amenorrhea COMPARISON: No relevant comparison available. TECHNIQUE: Transabdominal and transvaginal sonographic examination. FINDINGS: UTERUS: Normal size and appearance. Uterus size: 6.7 x 2.6 x 2.2 cm ENDOMETRIUM: Normal homogeneous appearance. Endometrial thickness: 1 mm RIGHT OVARY: Normal size and appearance. Duplex Doppler demonstrates normal waveform and flow; resistive index 0.2. Ovary size: 1.6 x 1.5 x 1.2 cm LEFT OVARY: Not seen. No suspicious adnexal findings. CUL-DE-SAC: Unremarkable. No significant free fluid. BLADDER: Unremarkable. OTHER: Prominent periuterine vessels; nonspecific. IMPRESSION: 1. Thin endometrium, 1 mm in thickness; correlate with patient's stage in her menstrual cycle. 2. Unremarkable right ovary. Left ovary was not seen. Electronically authenticated by: EARL SIMMONS Date: 2023-02-24 16:[address] [place], [place] [address]Pa IG, rfx Aptima HPV ASCUon 07-29-2022..NormalThe [facility]ain HospitalComment on above:Performed By: #### [id number] #### [facility] [address] [place] [address] Dr. Igor ButlerDIAGNOSIS:CommentOhioHealth Van Wert Hospital on above: Result Comment: NEGATIVE FOR INTRAEPITHELIAL LESION OR MALIGNANCY.Performed By: #### [id number] #### [facility] [address] [place] [address] Dr. Igor ButlerMethodology:CommentNormDayton Children's HospitalComment on above: Result Comment: This liquid based ThinPrep(R) pap test was screened with the use of an image guided system.Performed By: #### [id number] #### [facility] [address] [place] [address] Dr. Igor ButlerNote:CommentNoCleveland Clinic Hillcrest Hospitalment on above:Result Comment: The Pap smear is a screening test designed to aid in the detection of premalignant and malignant conditions of the uterine cervix. It is not a diagnostic procedure and should not be used as the sole means of detecting cervical cancer. Both false-positive and false-negative reports do occur. .Performed By: #### [id number] #### [facility] [address] [place] [address] Dr. Igor ButlerPerformed by:[facility] on above: Result Comment: Emily Frank, Development Trainer (ASCP)Performed By: #### [id number] #### [facility] [address] [place] [address] Dr. Igor ButlerReflex Criteria:[facility] on above:Result Comment: The HPV DNA reflex criteria were not met with this specimen result therefore, no HPV testing was performed. .Performed By: #### [id number] #### [place] [address] [address] Igor ButlerSpecimen adequacy:[facility] on above:Result Comment: Satisfactory for evaluation. Endocervical and/or squamous metaplastic cells (endocervical component) are present.Performed By: #### [id number] #### [facility] [address] [place] [address] Dr. Igor Butler Vital Signs Date TimeVital SignValuePerforming NbnfobdazIijonbjo94-35-3437 10:34-0400Body vliqpz677.8 cmCathi Martinez MD Work Phone: [facility] HospitalXrugmxirzl87-26-5563 10:34-0400Body mass index (BMI) [Ratio]22.1 kg/p5AowagxCathi Martinez MD Work Phone: [phone] HospitalWhvgwywntw84-86-6331 10:34-0400Body brpubd29.85 kgCathi Martinez MD Work Phone: [phone] HospitalButvyforot61-60-2555 10:34-0400Diastolic blood qnqvvecl94 mm[Hg]Cathi Martinez MD Work Phone: [facility] HospitalOrzmfdogkg81-21-5590 10:34-0400Heart rate74 /min Cathi Martinez MD Work Phone: [facility] HospitalZiezcefvpd15-59-1347 10:340400Systolic blood qclxatdu67 mm[Hg]Cathi Martinez MD Work Phone: [facility] HospitalUqnmurdtzk27-68-3926 10:27-0400Body veyofr794.8 Yumiko Parada MD Work Phone: [phone]08-22-2025 10:27-0400Body mass index (BMI) [Ratio]22.21 kg/m2Angela Parada MD Work Phone: [phone])[address]08-22-2025 10:27-0400Body cqumkwdrzuu16.1 [degF]Angela Parada MD Work Phone: [phone])[address] [place], [place] [address]28808-22-2025 10:27-0400Body itjqqy98.22 kgAngela Parada MD Work Phone: [phone]08-22-2025 10:27-0400Diastolic blood jikzeonb75 mm[Hg]Angela Parada MD Work Phone: [phone])[address]08-22-2025 10:270400Heart rate 79 /minAngela Parada MD Work Phone: 1(024)[address] [place], [place] 44[address]808-22-2025 10:273079KbY2% (BldA) [Mass fraction]95 %Angela Parada MD Work Phone: [phone])[address]08-22-2025 10:27-0400Systolic blood urhszllr072 mm[Hg]Angela Parada MD Work Phone: [phone])[address]07-10-2025 09:56-0400Body cjofop918.8 Ольга Cramer MD Work Phone: [facility]07-10-2025 09:56-0400Body mass index (BMI) [Ratio]21.87 kg/t0QjhsoLuke Cramer MD Work Phone: [facility]07-10-2025 09:56-0400Body jldogcdvyjg25.6 [degF]Luke Cramer MD Work Phone: [facility] Reewup00-77-6425 09:56-0400Body bjkfyf50.13 kgLuke Cramer MD Work Phone: [facility] Xqsqwp76-94-3997 09:56-0400Diastolic blood asatwodr93 mm[Hg]Luke Cramer MD Work Phone: [phone] [place] [address] [employer] Aknitf25-02-0076 09:56-0400Heart rate 74 /minLuke Cramer MD Work Phone: [phone] [place] [address] [employer] Otjuaf63-05-1130 09:56-0400 Respiratory rate16 /Ham Cramer MD Work Phone: 1(082)563-[address] [place], [place] 1544407-10-2025 09:56-8762NjA0% (BldA) [Mass fraction]100 %Luke Cramer MD Work Phone: 1(465)8-[address] [place] [address] [employer] Zrrovc34-85-4857 09:56-0400Systolic blood ktpnrizj694 mm[Hg]Luke Cramer MD Work Phone: 1([phone])022-[address] [place] [address] [employer] Grznoz07-07-3718 09:58-0500Body whajje878.8 Ольга Cramer MD Work Phone: [phone])905-[address] [place] [address] [employer] Zlvnak07-79-9653 09:58-0500Body mass index (BMI) [Ratio]23.33 kg/x0SjnseLuke Cramer MD Work Phone: 1(737)041-[address] [place] [address] [employer] Vmqvwo44-53-0823 09:58-0500Body vpusqnqwnaq12.1 [degF]Luke Cramer MD Work Phone: [phone] [place] [address] [employer] Sirolq19-99-6449 09:58-0500Body .75 kgLuke Cramer MD Work Phone: [phone])788-[address] [place] [address] [employer] Qybzle51-89-9568 09:58-0500Diastolic blood zzomjlzb80 mm[Hg]Luke Cramer MD Work Phone: 1(833)708-[address] [place] [address] [employer] Vwpuoe52-64-0747 09:58-0500Heart rate 82 /Ham Cramer MD Work Phone: [facility] HospitalIris Experience Dtqweo65-40-7271 09:58-0500 Respiratory rate16 /Ham Cramer MD Work Phone: [facility] AllylixEhebgk03-79-5450 09:58-7797AkW8% (BldA) [Mass fraction]98 %Luke Cramer MD Work Phone: [facility] Dffzdx39-80-9993 09:58-0500Systolic blood gebgohdu886 mm[Hg]Luke Cramer MD Work Phone: [facility] Encounters Encounter DateEncounter TypeCare ProviderFacilityStart: 08-19-2025 End: 77-40-6740Dolmsj Christiano Cramer MD Work Phone: [facility] Hematology Oncology, A Department of Doctors HospitalComment on above:CML (chronic myeloid leukemia) ([facility]); Pain, cancerStart: 08-05-2025 End: 84-95-7170Qsjhtf flowsheetCathi Martinez MD Work Phone: [facility] [place] OtolaryngologyStart: 08-05-2025 End: 29-71-3691Oqucfyradha Martinez MD Work Phone: [facility] [place] OtolaryngologyStart: 08-05-2025 End: 31-91-6317mrdrgzklloJQDSVL H TIMMISNot AvailableStart: 08-05-2025 End: 11-33-3289Rjlqsl outpatient new 30 minutesCathi Martinez MD Work Phone: [facility] [place] OtolaryngologyComment on above:Hypertrophy of tonsils alone (Primary Dx); Tonsil stoneStart: 07-25-2025 End: 16-06-0093Lvkhcgwyo encounterDanielle Guy RPHProMedica Speciality PharmacyComment on above:Prior Authorization (DASATINIB)Start: 07-22-2025 End: 37-11-8997Xsbcyrcozfpbh procedureCandaabdiaziz [facility] - Medical OncologyStart: 07-18-2025 End: 79-60-1341Mlskbu Christiano Cramer MD Work Phone: [facility] OncologyComment on above:CML (chronic myeloid leukemia) ([facility]); Pain, cancerStart: 07-11-2025 End: 84-47-0240lewwjonlojCTCP J HIESTANDMetroHealth [facility] Ambulatory PPGStart: 07-11-2025 End: 84-70-2774Ogcxjx outpatient visit 15 minutesAngela Parada MD Work Phone: [facility] Comment on above:Tonsillitis (Primary Dx); Chronic tonsillar hypertrophyStart: 06-20-2025 End: 62-65-6161Vjdnwa Aracelis Parada MD Work Phone: pPrairieville [facility] HospitalAppiny Physicians Internal Medicine/Pediatrics Comment on above:Tonsil stone (Primary Dx)C[place] (chronic [place]) [place] Pain, cancerStart: 06-02-2025 End: 35-71-8979Gkswypyck encounterDanielle [facility] Speciality PharmacyComment on above:Prior Authorization (DASATINIB)Start: 05-31-2025 End: 40-49-3048ZaocanNxad J Hiestand MD Work Phone: pP[facility]irie[facility] HospitalAppiny Physicians Internal Medicine/Pediatrics Comment on above:Strain of left trapezius muscle, subsequent encounterStart: 05-30-2025 End: 70-66-5371Mpesrg-up encounterLuke Cramer MD Work Phone: [facility] OncologyComment on above:CBC with auto diff, Comprehensive metabolic panel, BCR/ABL by PCR w/ ReflexStart: 05-29-2025 End: 18-90-8137Oeaymb outpatient visit 25 minutesLuke Cramer MD Work Phone: [facility] Medical OncologyComment on above:CML (chronic myeloid leukemia) ([facility]) (Primary Dx)Start: 05-29-2025 End: 74-22-9340Bvanlz Jose Juan Frost RNDoeraOchsner [facility] OncologyComment on above:CML (chronic myeloid leukemia) ([facility]) (Primary Dx) Start: 05-27-2025 End: 40-25-5182eogrlqrhdrPHQRQShabbir Ji [facility] Hospitaltart: 05-22-2025 End: 18-75-9336Snlewt Christiano Cramer MD Work Phone: [facility] Hematology Oncology, A Department of Doctors HospitalComment on above:CML (chronic myeloid leukemia) ([facility]); Pain, cancerStart: 05-05-2025 End: 84-69-2142FlrwmhQsbyTsering [facility] Physicians Internal Medicine/PediatricsStart: 04-25-2025 End: 28-66-9257Eghzdc Christiano Cramer MD Work Phone: [facility] OncologyComment on above:CML (chronic myeloid leukemia) ([facility]); Pain, cancerStart: 03-28-2025 End: 82-75-7716Ygomnt Christiano Cramer MD Work Phone: [facility] OncologyComment on above:CML (chronic myeloid leukemia) ([facility]); Pain, cancerStart: 03-23-2025 End: 50-45-0566ZqtxelYqntz N Xia MD Work Phone: eraOchsner [facility] OncologyComment on above:CML (chronic myeloid leukemia) ([facility])Start: 03-14-2025 End: 40-74-2914Kjnzkj Christiano Cramer MD Work Phone: eraOchsner [facility] OncologyComment on above:CML (chronic myeloid leukemia) ([facility]); Pain, cancerStart: 02-13-2025 End: 90-66-0648Fdqzyk Christiano Cramer MD Work Phone: [facility] Hematology Oncology, A Department of Doctors HospitalComment on above:CML (chronic myeloid leukemia) ([facility]); Pain, cancerStart: 01-31-2025 End: 21-60-5177TojjgtYcxg Kramer AProMedlamar regional hospital Physicians Internal Medicine/PediatricsStart: 01-27-2025 End: 60-27-8980NhiiexEbnceh Sleek CMAProMedica Physicians Internal Medicine/PediatricsComment on above:Strain of left trapezius muscle, subsequent encounterStart: 01-21-2025 End: 14-49-2599LkebtkJvga Kramer AProMedlamar regional hospital Physicians Internal Medicine/PediatricsStart: 01-16-2025 End: 75-27-1683Aqfigj Christiano Cramer MD Work Phone: JimOchsner [facility] OncologyComment on above:CML (chronic myeloid leukemia) ([facility]); Pain, cancerStart: 01-03-2025 End: 16-98-5840UpsqtfEakmr N Xia MD Work Phone: JimOchsner [facility] OncologyStart: 12-19-2024 End: 67-02-3376Ckhbkg Christiano Cramer MD Work Phone: JimOchsner [facility] OncologyComment on above:CML (chronic myeloid leukemia) ([facility]); Pain, cancerStart: 12-16-2024 End: 64-23-8666DaljatGmqo Kramer [facility] Physicians Internal Medicine/PediatricsComment on above:Strain of left trapezius muscle, subsequent encounterStart: 12-03-2024 End: 06-13-4870Zksxutwiwpoam procedureJaquelin Murphy [facility] OncologyStart: 11-29-2024 End: 61-65-4648Xblswhcrlpwps procedureVilla Gallagher RNMarci Murphy [facility] OncologyStart: 11-29-2024 End: 37-79-6808Hhcudm outpatient visit 25 minutesLuke Cramer MD Work Phone: Marci Murphy [facility] OncologyComment on above:CML (chronic myeloid leukemia) ([facility]) (Primary Dx)Start: 11-29-2024 End: 57-74-4991bievexlrebOHXIC N XIAProMedharriet Noble HospitalStart: 11-26-2024 End: 41-36-0809dfsgmcpnasVODLC N XIAProMedica Parkwood Hospital HospitalStart: 11-21-2024 End: 09-53-6164DmjrysAlma Cramer MD Work Phone: [facility] H[facility] Oncology, A Department of Doctors HospitalComment on above:CML (chronic myeloid leukemia) ([facility]); Pain, cancerStart: 08-07-2024 End: 32-26-4541oxkmzmlupnZXBI J [facility] Ambulatory PPGStart: 02-24-2023 End: 50-61-5843mppzfiaqbuOI JUNIOR FABY .Facility:Y3Ftfni: 02-21-2023 End: 04-87-4071hpaifquheyYRY RAMEYFacility:U7Nskno: 40-88-5179Fmfdalaca for cervical smear to confirm findings of recent normal smear following initial abnormal smearDR JUNIOR FABY .[facility] HospitalStart: 07-21-2022 End: 63-71-6161lzsndadioiXG JUNIOR FABY .Facility:G9Svbxz: 07-21-2022 End: 25-04-2924Fqwyhikiv for cervical smear to confirm findings of recent normal smear following initial abnormal smearDR JUNIOR FABY .Facility:L0Fylbm: 02-13-2019 End: 76-35-5659Mphvqxo encounter procedureDEFAULT PHYSICIANFacility:[facility] Procedures DateProcedureProcedure DetailPerforming ClinicianStart: 23-41-2119Ykrvv depression screening assessmentAngela Parada MD Work Phone: start: 69-47-2204Bnelge-up visitFollow-Emelyn CRAMER Start: 04-42-5701Yicayj-up visitFoelly-Manjinder MACIELtart: 91-73-9538Wuyft depression screening assessmentLuke Cramer MD Work Phone: Plan of Treatment DateCare ActivityDetailAuthorStart: 68-55-6136Gdmek BMI ScreeningAdult BMI ScreeningProUniversity [facility]als [facility] SystemStart: 14-60-7817Pfdamhgfwv ScreeningDepression ScreeningProUniversity Hospitals [facility] SystemStart: 27-49-8780Tgkleew ScreeningTobacco ScreeningDiley Ridge Medical Center SystemStart: 57-81-7824Bfnjg BMI ScreeningAdult BMI ScreeningProUniversity Hospitals [facility] SystemStart: 58-22-4918Xpgovyv ScreeningTobacco ScreeningDiley Ridge Medical Center SystemStart: 12-18-2025 End: 09-69-8170Mbdccrz encounter /29/2026 10:00 AM EST Office Visit Marci Murphy [facility] - Medical Oncology [address] [place] [address] Luke Cramer MD [address] [facility] [address] [place], [place] [id number] Marci Jeffrey [facility] - Medical OncologyStart: 47-11-6772Oatpt BMI ScreeningAdult BMI ScreeningDiley Ridge Medical Center SystemStart: 11-29-2025 End: 44-76-8044UBT/ABL by PCR w/ ReflexProUniversity Hospitals [facility] SystemComment on above: every 6 months for 2 Occurrences starting 11/29/2024 until 11/29/2025Expected: 11/29/2025 (Approximate), Expires: 05/29/2026Start: 11-29-2025 End: 48-34-1782KGP W Auto Differential panel - BloodDiley Ridge Medical Center System Comment on above:every 6 months for 2 Occurrences starting 11/29/2024 until 11/29/2025Expected: 11/29/2025 (Approximate), Expires: 05/29/2026Start: 11-29-2025 End: 36-85-0371Ssoxpbnxrhdnx metabolic 2000 panel - Serum or PlasmaDiley Ridge Medical Center SystemComment on above:every 6 months for 2 Occurrences starting 11/29/2024 until 11/29/2025Expected: 11/29/2025 (Approximate), Expires: 05/29/2026Start: 95-18-8197Znglukt ScreeningTobacco ScreeningDiley Ridge Medical Center SystemStart: 72-92-7125Mkghb BMI ScreeningAdult BMI ScreeningDiley Ridge Medical Center SystemStart: 14-54-0542Ggubzjc ScreeningTobacco ScreeningDiley Ridge Medical Center System Start: 20-97-1828Klyoajibc vaccinationInfluenza VaccineDiley Ridge Medical Center System Start: 05-29-2025 End: 42-79-2455Cbzqahr encounter /10/2025 10:00 AM EDT Office Visit Marci Johnson [facility] - Medical Oncology [address] [place] [address] [phone] Luke Cramer MD [address] [place] [address] Marci Johnson [facility] OncologyStart: 11-29-2024 End: 17-01-1266Ugecdbh encounter wntgrrnoc29/10/2025 10:00 AM EST Office Visit Marci Johnson [facility] Medical Oncology [address] [place] [address] [phone] Luke Cramer MD [address] [place] [address] Marci Johnson [facility] OncologyStart: 68-21-8906Ouiuhmztm vaccinationInfluenza VaccineDiley Ridge Medical Center SystemStart: 15-45-9246Mbaxyyzbuv ScreeningDepression ScreeningDiley Ridge Medical Center SystemStart: 84-58-2641DYhF,Tdap and Td Vaccines (7 - Td or Tdap) DTaP,Tdap and Td Vaccines (7 - Td or Tdap)[facility] SystemStart: 39-32-0900Inphbnvqp for malignant neoplasm of cervixPap SmearDiley Ridge Medical Center SystemStart: 38-97-2381Tmnkqeg CounselingTobacco CounselingDiley Ridge Medical Center System End: 90-84-2421YYZ 12 leadECG 12 lead ECG Routine CML (chronic myeloid leukemia) ([facility]) Pain, cancer Other chronic pain every 6 months for 2 Occurrences starting 11/29/2024 until 11/29/2025[facility] Work Phone: Comment on above:every 6 months for 2 Occurrences starting 11/29/2024 until 11/29/2025 Immunizations Immunization DateImmunizationNotesCare OmqvyrqmUgbficlr83-53-1805Punbgyuvt, injectable, Madin Ingrid Canine Kidney, preservative free, quadrivalentLuke Cramer MD Work Phone: [facility] Vyrmff94-78-5679iyiupwfmm virus vaccine, unspecified formulationLuke Cramer MD Work Phone: [facility] Puyfgz14-05-8995xbaaaxisi, injectable, quadrivalent, contains preservativeLuke Cramer MD Work Phone: [facility] Akdaxo65-37-5834nbxqx papilloma virus vaccine, quadrivalentLuke Cramer MD Work Phone: [facility] Sdlldl04-92-4216tvhrocfln virus vaccine, unspecified formulationLuke Cramer MD Work Phone: [facility] Bpfadv17-50-4886gtxexuahn virus vaccine, unspecified formulationLuke Cramer MD Work Phone: [facility] Tafhkx73-30-3924aeibowsfmonqi oligosaccharide (groups A, C, Y and W-135) diphtheria toxoid conjugate vaccine (MCV4O)Luke Cramer MD Work Phone: [facility] Ezqdke78-30-6420vceqwrhvt B vaccine, adult dosageLuke Cramer MD Work Phone: [facility] Cdpjak55-22-7738bfyvxrv toxoid, reduced diphtheria toxoid, and acellular pertussis vaccine, adsorbedLuke Cramer MD Work Phone: [facility] Eikiup25-37-6890rxnjzfrzc B vaccine, adult dosageLuke Cramer MD Work Phone: [facility] Dbhzdt37-56-7221ttpovbrqw B vaccine, adult dosageLuke Cramer MD Work Phone: [facility] Tsmccz25-23-6425wwqqfdcnrr, tetanus toxoids and acellular pertussis vaccineLuke Cramer MD Work Phone: [facility]02-27-1996measles, mumps and rubella virus Ana Cramer MD Work Phone: [facility]bleSkhelg93-95-5078jllounimmw vaccine, Inocencio Cramer MD Work Phone: [facility]bleGcerol80-61-0935wqqnvxwtjn, tetanus toxoids and acellular pertussis vaccineLuke Cramer MD Work Phone: [facility]bleNmxptg80-23-5159mcwjgxpkyf vaccine, inactivatedLuke Cramer MD Work Phone: [facility]09-15-1992measles, mumps and rubella virus vaccineLuke Cramer MD Work Phone: [facility]bleZdzuvo45-53-6204gbvzylgylsy influenzae type b vaccine, conjugate unspecified formulationLuke Cramer MD Work Phone: [facility] PrebleZbpqii48-19-4317rboxaqqhao, tetanus toxoids and acellular pertussis vaccineLuke Cramer MD Work Phone: [facility] PrebleLcyyzs48-92-5793trwywbkwhw, tetanus toxoids and acellular pertussis vaccineLuke Cramer MD Work Phone: [facility] PrebleTualyq44-06-5069oxfaxuufazr influenzae type b vaccine, conjugate unspecified formulationLuke Cramer MD Work Phone: [facility]bleAzjjxx91-44-9556roqehyxqck vaccine, Inocencio Cramer MD Work Phone: [facility] PrebleRglgnt73-22-5233gvhebozhpk, tetanus toxoids and acellular pertussis vaccineLuke Cramer MD Work Phone: [facility] PrebleYkzlnq39-29-5475gvrrkyitazi influenzae type b vaccine, conjugate unspecified formulationLuke Cramer MD Work Phone: [facility] PrebleOlkcjt43-53-1924ahfhkaevpx vaccine, inactivatedLuke Cramer MD Work Phone: [facility] Payers DatePayer CategoryPayerPolicy [id number] InsuranceE[facility] INSURANCE [id number] [id number] Health Insurance [id number] 2.0.1.088403.3.57[id number] 2.0.1.665655.3.57[id number] 2.0.1.359902.3.57[id number] 2.0.1.690680.3.57[id number] 2.0.1.386813.3.57[id number] 2.0.1.883601.3.57[id number] 2.0.1.534725.3.57[id number] 2.160.1.006773.3.57[id number] 2.0.1.461841.3.57[id number] 2.16.840.1.318549.3.57[id number] 2.16.840.1.326253.3.579.2.363267-29-0423Lctwljk Health [id number] 61-10-2397DkbyjmmFDJ552Y35881Znukcuq Social History DateTypeDetailFacilityStart: 63-51-3825Ytxuxfe smoking status NHISOccasional tobacco smokerProUniversity [facility]als [facility] SystemHistory of tobacco useCigarette Smoker [facility] SystemStart: 05-09-2024 End: 93-39-3253Koimmtr use and exposureSmokeless tobacco non-userDiley Ridge Medical Center SystemStart: 08-07-2024 End: 32-70-0297Jsrncquki beverage intakeEx-drinker (finding)[facility] SystemStart: 07-28-2022 End: 24-77-4318Kunhzix of Social functionDiley Ridge Medical Center SystemStart: 07-28-2022 End: 36-06-9966Epiogi connection and isolation panelUC Medical Center Health SystemDo you belong to any clubs or organizations such as sikhism groups, unions, fraternal or athletic groups, or school groups?NoProMedlamar regional hospital Health SystemAre you now , , , , never or living with a partner?MarriedProAndalusia Health Health SystemHow often to you have a drink containing alcohol?NeverProAndalusia Health Health SystemHow many standard drinks containing alcohol do you have on a typical day?Patient does not drinkProAndalusia Health Health SystemDo you feel stress - tense, restless, nervous, or anxious, or unable to sleep at night because yourmind is troubled all the time - these days [OSQ]To some extent [facility] SystemStart: 01-87-1755Vinpknxhh66RokTlqtrl Health SystemStart: 35-21-1039Qeq assigned at birthNot on fileDiley Ridge Medical Center SystemStart: 98-23-9761VozNsbarf (finding)[facility] SystemTobacco smoking status NHIS Tobacco smoking consumption unknownNOMS HealthcareStart: 53-29-2466Bdxedrm smoking status NHISSmokes tobacco dailyNOCO HealthcareStart: 46-58-1755Ytewbsnrg beverage intakeLifetime non-drinker (finding)[facility] Goals DatePatient GoalDesired Activity/StatePersonal health goalComment on above: Evaluation of progress towards goal: Pt requests safe transition home. Clinical Notes 11-29-2024 to 08-05-2025 Note Date & PspuUbezHmfpbfhf91-02-7770 History of Present illness Narrative* Cathi Martinez MD - 08/05/2025 10:30 AM EDT Subjective Patient ID: Sujata Amos is a 35 y.o. female who presents for Enlarged Tonsils (Chronic tonsillarhypertrophy) Pt states she has had big tonsils all her life. Get bigger when inflamed. Tx once for tonsillitis since 2021. Also gets tonsil stones. Pt has CML and takes chemo daily. Review of Systems All other systems reviewed and are negative. No family history on file. Active Ambulatory Problems Diagnosis Date Noted Amenorrhea 08/04/2025 Anxiety 08/04/2025 Chronic myeloid leukemia (HCC) 08/29/2019 Depression 08/04/2025 Other chronic pain 10/30/2020 Resolved Ambulatory Problems Diagnosis Date Noted No Resolved Ambulatory Problems No Additional Past Medical History Past Surgical History: Procedure Laterality Date APPENDECTOMY 2016 CERVICAL BIOPSY W/ LOOP ELECTRODE EXCISION IR BIOPSY BONE MARROW Right 08/20/2019 IR BIOPSY BONE MARROW 08/20/2019 Allergies Allergen Reactions Ketorolac Tromethamine Other Reaction(s): Unknown Latex Other Reaction(s): Unknown Levofloxacin Other Reaction(s): Unknown Current Outpatient Medications on File Prior to Visit Medication Sig Dispense Refill Alyacen 1-35 MG-MCG tablet TAKE 1 TABLET BY MOUTH EVERY DAY IN THE MORNING 84 tablet 3 cetirizine (ZyrTEC) 5 MG chewable tablet Chew Daily dasatinib (Sprycel) 80 MG chemo tablet Take 80 mg by mouth Daily. escitalopram (Lexapro) 20 MG tablet Take 30 mg by mouth in the morning. furosemide (Lasix) 40 MG tablet Take 40 mg by mouth Daily as needed gabapentin (Neurontin) 300 MG capsule Take 300 mg by mouth in the morning and 300 mg at noon and 300 mg in the evening. morphine CR (MS Contin) 15 MG 12 hr tablet TAKE 1 TABLET (15 MG TOTAL) BY MOUTH 3 (THREE) TIMES A DAY. MAX DAILY AMOUNT: 45 MG30 DAY SUPPLY oxyCODONE (Roxicodone) 15 MG immediate release tablet TAKE 1 TABLET (15 MG TOTAL) BY MOUTH 5 (FIVE)TIMES A DAY. MAX DAILY AMOUNT: 75 MG30 DAY SUPPLY No current facility-administered medications on file prior to visit. Objective Last Recorded Vitals Vitals: 08/05/25 1034 BP: 98/72 Pulse: 74 ENT Physical Exam Constitutional Appearance: patient appears well-developed, well-nourished and well-groomed, Head and Face Appearance: head appears normal and face appears atraumatic; Ear Ear Canals: right ear canal normal; left ear canal normal; Tympanic Membranes: right tympanic membrane normal; left tympanic membrane normal; Nose External Nose: nares patent bilaterally; external nose normal; Internal Nose: septum normal; Oral Cavity/Oropharynx Tongue: normal; Oral mucosa: normal; Hard palate: normal; Soft palate: normal; Tonsils: bilateral tonsils 2+, Neck Neck: neck normal; neck palpation normal; Thyroid: thyroid normal; Respiratory Inspection: breathing unlabored; normal breathing rate; Auscultation: breath sounds are clear; Cardiovascular Inspection: extremities are warm and well perfused; no peripheral edema present; Auscultation: regular rate and rhythm; Assessment/Plan Diagnoses and all orders for this visit: Hypertrophy of tonsils alone Tonsil stone Pt does not have clinically significant tonsil hypertrophy and has only had tonsillitis once in thepast few years. She is clearly hoping for a tonsillectomy, but in my opinion the risks far outweighthe very limited potential benefit, even before assessing the potential impact of her CML on the risks. Recommend continued prn tx of tonsillitis. We also discussed conservative management of tonsil stones, including BID peroxide gargle and debriding crypts with a water pik documented in this encounterRipley County [facility] [id number] Miscellaneous Notes* Telephone Encounter - Marcus Sawyer - 07/25/2025 3:16 PM EDT Pharmacy PA team received PA request for DASATINIB. No prior authorization is required through patient's [employer] pharmacy benefit. Test Claim Results Medication name, strength & form: DASATINIB 80MG TABLET Qty/Day Supply: 30/30 Days Result: Restricted to specialty pharmacy Required to fill with Specialty Pharmacy: YES Eligible to fill at [facility] Specialty Pharmacy: NO Preferred Specialty Pharmacy: [facility] Estimated Co-pay at [facility] Specialty Pharmacy: Unable to determine cost due to specialty pharmacy requirement Was the patient contacted by PA team: No documented in this encounterPro[facility]DinersGroup09-[facility]25 Telephone encounter Note* Telephone Encounter - Marcus Sawyer - 07/25/2025 3:16 PM EDT Pharmacy PA team received PA request for DASATINIB. No prior authorization is required through patient's [employer] pharmacy benefit. Test Claim Results Medication name, strength & form: DASATINIB 80MG TABLET Qty/Day Supply: 30/30 Days Result: Restricted to specialty pharmacy Required to fill with Specialty Pharmacy: YES Eligible to fill at [facility] Specialty Pharmacy: NO Preferred Specialty Pharmacy: [facility] Estimated Co-pay at [facility] Pharmacy: Unable to determine cost due to specialty pharmacy requirement Was the patient contacted by PA team: No [facility] [id number] History of Present illness Narrative* Alice Lauren RN - 07/22/2025 2:56 PM EDT Message from [facility] on VM for dose clarification on patient's sprycel. They received order for 50 mg daily, but patient reports she is to be on 80 mg daily. Per recent OV note from Dr. Cramer, dose will be decreased from 80 mg daily to 50 mg daily, for better tolerance since her last BCR/ABL in May was negative and not having any rib/joint pain. Call to [facility] and spoke with Quang and provided update from note that 50 mg dose daily is the correct dose. They are planning to ship medication to patient on 07/24/25. Call to patient to update on clarification to pharmacy. No answer, LVM that [address] Cramer has ordered for patient and why. Instructed her to call office with any additional questions and office number provided. documented in this encounterK[facility]08-22-2025 History of Present illness Narrative* Angela Parada MD - 07/11/2025 10:30 AM EDT Subjective Patient ID: Sujata Amos is a 35 y.o. female. She has a history of tonsillar hypertrophy and intermittent episodes of tonsillitis. She also has recurrently had bothersome tonsil stones. She has a sore throat for the last number of days affectingher left side. No high fever. It hurts to swallow. The following portions of the patient's history were reviewed and updated as appropriate: allergies, current medications, past medical history, past social history, past surgical history, and problemlist. Review of Systems Objective Physical Exam Constitutional: Comments: Afebrile and not toxic. HENT: Nose: No congestion. Mouth/Throat: Comments: Tonsils are large and erythematous. I see no exudate or ulceration. No visible stone at the moment. Neck: Comments: Tender in the left anterior neck over the tonsil area. Assessment/Plan Further pending her response to antibiotic and input from ENT. Diagnoses and all orders for this visit: Tonsillitis - cefadroxil (DURICEF) 1 gram tablet; Take 1 tablet (1 g total) by mouth in the morning for 10 days. Chronic tonsillar hypertrophy - Ambulatory referral to ENT (Non[facility]); Future documented in this encounterK[facility]08-22-2025 Miscellaneous Notes* Addendum Note - Angela Parada MD - 07/11/2025 10:30 AM EDTAddended by: ANGELA PARADA on: 07/11/2025 12:26 PM Modules accepted: Orders documented in this encounterKet[facility]08-22-2025 Note* Addendum Note - Angela Parada MD - 07/11/2025 10:30 AM EDTAddended by: ANGELA PARADA on: 07/11/2025 12:26 PM Modules accepted: Orders [facility]07-14-2025 Miscellaneous Notes* Telephone Encounter - Jeffreyyvon Sawyer - 06/02/2025 1:27 PM EDT Pharmacy PA team received PA request for DASATINIB. No prior authorization is required through patient's [employer] pharmacy benefit. Test Claim Results Medication name, strength & form: DASATINIB 50MG TABLET Qty/Day Supply: 30/30 Days Result: No Prior Authorization required at this time Required to fill with Specialty Pharmacy: NO Eligible to fill at [facility] Specialty Pharmacy: YES Preferred Specialty Pharmacy: [facility] Estimated Co-pay at [facility]: $12 Medication Assistance: No copay assistance needed at this time. Was the patient contacted by PA team: No documented in this encounterKet[facility]07-14-2025 Telephone encounter Note* Telephone Encounter - Marcus Sawyer - 06/02/2025 1:27 PM EDT Pharmacy PA team received PA request for DASATINIB. No prior authorization is required through patient's [employer] pharmacy benefit. Test Claim Results Medication name, strength & form: DASATINIB 50MG TABLET Qty/Day Supply: 30/30 Days Result: No Prior Authorization required at this time Required to fill with Specialty Pharmacy: NO Eligible to fill at [facility] Specialty Pharmacy: YES Preferred Specialty Pharmacy: [facility] Estimated Co-pay at [facility]: $12 Medication Assistance: No copay assistance needed at this time. Was the patient contacted by PA team: No [facility]-12-2025 Miscellaneous Notes* Telephone Encounter - JONY Stewart - 05/31/2025 12:13 PM EDT Refill request. documented in this encounterKettering [facility]07-12-2025 Telephone encounter Note* Telephone Encounter - JONY Stewart - 05/31/2025 12:13 PM EDT Refill request. [facility] History of Present illness Narrative* Jaquelin Frost RN - 05/29/2025 10:28 AM EDT Patient is here for follow up with Dr. Cramer. Orders received to Wait for PCR, plan to drop dose to 50 mg daily. F/u in 6 months, cbc, cmp, Pcr. Patient given calendar, verbalized understanding of future appointments. documented in this encounterK[facility]tering [facility]07-10-2025 History of Present illness Narrative* Luke Cramer MD - 05/29/2025 10:00 AM EDT Images from the original note were not included. [facility] 05/29/25 Sujata Amos is a 35 y.o. year old History of Present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 consent was obtained. Sedation: Throughout this procedure IV conscious sedation (Versed 4 milligrams, fentanyl 200 micrograms) were administered by trained personnel using blood pressure monitoring, EKG monitoring, continuous pulse oximetry, and mental status evaluation. The length of conscious sedation was 15 minutes. Fluoroscopy time: 0.6 minutes. Total number of spot fluoroscopic digital images obtained 1. All elements of maximum sterile barrier technique and cutaneous antisepsis were utilized throughout this procedure. Procedure: The patient was placed prone on the fluoroscopy table. The posterior iliac crest region was prepped and draped in usual sterile fashion using 1% lidocaine for local anesthesia. Direct fluoroscopic guidance was used to anesthetize the periosteum overlying the right posterior iliac crest using 1% lidocaine and a spinal needle. Direct fluoroscopic guidance was used to advance an 11-gauge Isentropic bone biopsy needle into the right posterior iliac crest. Bone marrow aspirates were obtained both heparinized and nonheparinized, and per the request of the clinical service intact core biopsy specimen was obtained via the 11-gauge Cook bone biopsy needle. The patient tolerated this well without immediate complications and left the interventional radiology Department in good condition. Estimated blood loss was minimal. Impression: Fluoroscopic guided p ercutaneous bone marrow aspiration biopsy and core biopsy as detailed above. Finalized by Roman Arechiga MD on 08/20/2019 4:29 PM Recent Labs: Recent Results (from the past 2 weeks) BCR/ABL by PCR w/ Reflex Collection Time: 11/26/24 3:58 PM Result Value Ref Range BCR/ABL by PCR w/ Reflex SEE COMMENTS 11/28/2024 04:25 PM Comprehensive metabolic panel Collection Time: 11/26/24 3:58 PM Result Value Ref Range Sodium 139 134 - 146 mmol/L Potassium, Bld 4.4 3.5 - 5.0 mmol/L Chloride 99 98 - 109 mmol/L CO2 34 (H) 22 - 32 mmol/L Anion gap 6 5 - 15 mmol/L BUN 16 5 - 23 mg/dL Creatinine 0.93 0.40 - 1.00 mg/dL Glucose 71 65 - 99 mg/dL Calcium 9.1 8.5 - 10.5 mg/dL Total Protein 7.2 6.0 - 8.0 g/dL Albumin 4.1 3.2 - 5.3 g/dL Alkaline Phosphatase 47 39 - 130 U/L AST 23 0 - 41 U/L ALT 18 0 - 31 U/L Total bilirubin 0.2 (L) 0.3 - 1.2 mg/dL eGFR (CKD-EPI)non-race dependent 83 >59 ml/min/1.73sq.m CBC auto differential Collection Time: 11/26/24 3:58 PM Result Value Ref Range White Blood Cells 7.5 4.0 - 11.0 X10E9/L RBC count 4.10 3.80 - 5.20 X10E12/L Hemoglobin 14.1 11.7 - 15.5 g/dL Hematocrit 40.5 35 - 47 % MCV 99 80 - 100 fL MCH 34.5 (H) 27 - 34 pg MCHC 34.9 32 - 36 g/dL RDW 13.3 11.5 - 15.0 % Platelets 326 150 - 450 X10E9/L MPV 6.9 (L) 7 - 12 fL % neutrophils 46.2 % % lymphocytes 44.6 % % monocytes 5.0 % % eosinophils 3.6 % % Basophils 0.6 % Neutrophils Absolute (A) 3.5 1.5 - 6.6 X10E9/L Lymphocytes Absolute 3.3 1.0 - 3.5 X10E9/L Monocytes Absolute 0.4 0 - 0.9 X10E9/L Eosinophils Absolute 0.3 0.0 - 0.4 X10E9/L Basophils Absolute 0.0 0.0 - 0.2 X10E9/L Diagnosis Problem list: Problem List Items Addressed This Visit Hematopoietic and Hemostatic CML (chronic myeloid leukemia) ([facility]) - Primary Impression: CML, chronic phase Sprycel 09/2019 Plan: BCR-ABL PCR test January of 2020 showed complete molecular response. Although the patient told me she is compliant with Sprycel treatment, her BCR/ABL level is up to 1.8% 09/2020. Recently treatment was changed to Sprycel again from Tasigna. BCR/ABL is down to 0.009%, consistent with major molecular remission (07/2021) Due to worsening fatigue and arthralgia, decrease Sprycel to 80 mg daily from August 2021. The patient's last EKG October 2020 showed normal QTC interval. Repeat EKG November 2024 is still pending. Patient's PCR test 11/2024 showed complete molecular remission with negative BCR/ABL. Since the patient is planning for , I would prefer she stay on 80 mg daily to achieve her and deeper response before treatment interruption. If patient decided about her plan of . She can start to get conceived after holding Sprycel for a month. Continue CBC CMP every 6 months PCR test every 6 months. EKG 11/2025 Reminder: Sprycel, Tasigna and Hydrea are contraindicated during . During , systemic treatment will be changed to interferon. Patient verbalized understanding If patient become and stop Sprycel, her PCR test should be monitored every 3 months. Of note usually patient experience hematologic relapse 6 months after treatment interruption. OARRS report reviewed. Patient's prescription will be sent to local pharmacy. Thank you. Luke Cramer MD Please note that portions of this note were generated using voice recognition [employer] dictation software. Although every effort was made to ensure the accuracy of this automated comb setter, some errors in comb setter may have occurred. CC: Patient Care Team: Angela Parada MD as PCP - General (Pediatrics) Luke Cramer MD as Consulting Physician (Oncology) PCP:Angela Parada Referring MD: Angela Parada MD [facility] [id number] Instructions* Patient Instructions* Luke Cramer MD - 11/29/2024 10:00 AM EST F/u in 6 months, CBC, CMP, BCR/ABL. documented in this encounterPro[facility] System[facility]* Diagnosis CML (chronic myeloid leukemia) (CMS-HCC) Chronic myeloid leukemia, without mention of having achieved remission Pain, cancer [facility] Diagnosis CML (chronic myeloid leukemia) (CMS-HCC)- Primary Chronic myeloid leukemia, without mention of having achieved remission Pain, cancer Other chronic pain [facility]* Diagnosis CML (chronic myeloid leukemia) (CMS-HCC)- Primary Chronic myeloid leukemia, without mention of having achieved remission [facility]* Diagnosis Strain of left trapezius muscle, subsequent encounter [facility]* Diagnosis Strain of left trapezius muscle, subsequent encounter [facility]* Diagnosis CML (chronic myeloid leukemia) (CMS-HCC) Chronic myeloid leukemia, without mention of having achieved remission [facility]* Diagnosis CML (chronic myeloid leukemia) (CMS-HCC)- Primary Chronic myeloid leukemia, without mention of having achieved remission [facility]* Diagnosis Tonsil stone- Primary Other chronic disease of tonsils and adenoids [facility]* Diagnosis Tonsillitis- Primary Acute tonsillitis Chronic tonsillar hypertrophy [facility]* Diagnosis Hypertrophy of tonsils alone- Primary Tonsil stone Other chronic disease of tonsils and adenoids documented in this encounter [facility] HealthcareEvaluation note* Diagnosis CML (chronic myeloid leukemia) (CMS-HCC) Chronic myeloid leukemia, without mention of having achieved remission Pain, cancer documented [facility] SystemInstructionsNot on filedocumented in this encounter [facility] SystemInstructionsNot on filedocumented in this encounter [facility] SystemInstructionsNot on filedocumented in this encounter [facility] SystemInstructionsNot on filedocumented in this encounter [facility]InstructionsNot on filedocumented in this encounter [facility]ructionsNot on filedocumented in this encounter [facility] SystemInstructionsNot on filedocumented in this encounter [facility] SystemInstructionsNot on filedocumented in this encounter [facility] SystemInstructionsNot on filedocumented in this encounter [facility] SystemInstructionsNot on filedocumented in this encounter [facility] Summary Purpose Family History No Family History Records FoundNo Family History Records FoundNo Family History Records FoundNo Family History Records FoundNo Family History Records FoundNo Family History Records Found Advance Directives Date ActivatedDate CxkgapowuxcSfphmjat13/1/2019 2:24 AM08/23/2019 5:11 PMDate ActivatedDate ExcfyideqfsUjfzenbg57/1/2019 2:24 AM08/23/2019 5:11 PM Additional Source Comments INFORMATION SOURCE (unrecogn ized section and content) DATE CREATED AUTHOR 02/17/2019 [facility] DATE CREATED AUTHOR AUTHOR'S ORGANIZ ATION 03/05/2023 [facility] DATE CREATED AUTHOR AUTHOR'S ORGANIZ ATION 05/31/2025 [facility] DATE CREATED AUTHOR AUTHOR'S ORGANIZ ATION 06/02/2025 [facility] DATE CREATED AUTHOR AUTHOR'S ORGANIZ ATION 07/13/2025 [facility] DATE CREATED AUTHOR AUTHOR'S ORGANIZ ATION 08/06/2025 [facility] EPIC Care Teams (unrecognized sec tion and content) Team MemberRelationshipSpecialtyStart DateEnd Date Angela Parada MD [address] [place] [address], [address] [place], [place] [phone] PCP - GeneralPediatrics6/Team MemberRelationshipSpecialtyStart DateEnd Date Angela Parada MD [address] [place] [address], [address] [place], [place] [phone] PCP - GeneralPediatrics6/25/18Team MemberRelationshipSpecialtyStart DateEnd Date Angela Parada MD [address] [place] [address], [address] [place] [address] PCP - GeneralPediatrics6/25/18Team MemberRelationshipSpecialtyStart DateEnd Date Angela Parada MD [address] [place] [address], [address] [place] [address] PCP - GeneralPediatrics6/25/18Team MemberRelationshipSpecialtyStart DateEnd Date Angela Parada MD [address] [place] [address], [address] [place] [address] PCP - GeneralPediatrics6/25/18Team MemberRelationshipSpecialtyStart DateEnd Date Angela Parada MD [address] [place] [address], [address] [place] [address] PCP - GeneralPediatrics6/25/18Team MemberRelationshipSpecialtyStart DateEnd Date Angela Parada MD [address] [place] [address], [address] [place] [address] PCP - GeneralPediatrics6/25/18Team MemberRelationshipSpecialtyStart DateEnd Date Angela Parada MD [address] [place] [address], [address] [place] [address] PCP - GeneralPediatrics6/25/18Team MemberRelationshipSpecialtyStart DateEnd Date Angela Parada MD [address] [place] [address], [address] [place] [address] PCP - GeneralPediatrics6/Team MemberRelationshipSpecialtyStart DateEnd Date Angela Parada MD [address] [place] [address], [address] [place] [address] PCP - GeneralPediatrics6/Team MemberRelationshipSpecialtyStart DateEnd Date Angela Parada MD [address] [place] [address], [address] [place] [address] PCP - GeneralPediatric/Team MemberRelationshipSpecialtyStart DateEnd Date Angela Parada MD [address] [place] [address], [address] [place] [address] PCP - GeneralFamily Medicine07/16/25Team MemberRelationshipSpecialtyStart DateEnd Date Angela Parada MD [address] [place] [address], [address] [place] [address] PCP - GeneralFamily Medicine07/16/25 Reason for Visit (unrecogniz ed section and content) ReasonCommentsFollow-upReasonOnset DateCommentsMed Vfyapt5012/16/2024Reason CommentsMed RefillReasonOnset DateCommentsMed Ksaowj5301/21/2025ReasonOnset Date CommentsMed Fsdlky1201/31/2025ReasonOnset DateCommentsMed Rnccjh2605/05/2025Reason Onset DateCommentsPrior Fwfzvdsppvlbd92/14/2025DASATINIBReasonCommentsSore ThroatLeft side and face. Started 4 days ago.ReasonOnset DateCommentsPrior Ictunxwjrafnr28/05/2025DASATINIBReasonCommentsEnlarged TonsilsChronic tonsillar hypertrophy FOR RECORDS PERTAINING TO PATIENTS WHO ARE OR HAVE BEEN ENROLLED IN A CHEMICAL DEPENDENCY/SUBSTANCEABUSE PROGRAM, SOME INFORMATION MAY BE OMITTED. This clinical summary was aggregated from multiple sources. Caution should be exercised in using it in the provision of clinical care. This summary normalizes information from multiple sources, and as a consequence, information in this document may materially change the coding, format and clinical context of patient data. In addition, data may be omitted in some cases. CLINICAL DECISIONS SHOULD BE BASED ON THE PRIMARY CLINICAL RECORDS. [facility] CenterEm[facility] and [employer] [facility]. provides no warranty or guarantee of the accuracy or completeness of information in this document.
--- OUTSIDE RECORDS SUMMARY | 2025-10-02 19:24 | XMS_ITS | Clinical Summary ---
Author Organization [facility] Address [address] [place] [address] Care Team Providers Care Auction Assistant Name Role Phone Merrill Yadav MD Primary Care Provider [phone] Allergies Active AllergyReactionsCriticalityNoted GgfoNvldxgboHyjfiilujQprjt19/30/2019 Ketorolac Oujlpateewoy15/21/2025 Other Reaction(s): Unknown Latex07/10/2025 Other Reaction(s): Unknown Hgdzeyxaobeb99/21/2025 Other Reaction(s): Unknown Medications MedicationSigDispense QuantityRefillsLast FilledStart DateEnd DateStatus escitalopram (Lexapro) 20 MG tablet Take 30 mg by mouth in the morning.5Active dasatinib (Sprycel) 80 MG chemo tablet Take 80 mg by mouth Daily.5Active furosemide (Lasix) 40 MG tablet Take 40 mg by mouth Daily as vkhyua165Active gabapentin (Neurontin) 300 MG capsule Take 300 mg by mouth in the morning and 300 mg at noon and 300 mg in the evening.5Active morphine CR (MS Contin) 15 MG 12 hr tablet TAKE 1 TABLET (15 MG TOTAL) BY MOUTH 3 (THREE) TIMES A DAY. MAX DAILY AMOUNT: 45 MG30 DAY SUPPLY5Active oxyCODONE (Roxicodone) 15 MG immediate release tablet TAKE 1 TABLET (15 MG TOTAL) BY MOUTH 5 (FIVE) TIMES A DAY. MAX DAILY AMOUNT: 75 MG30 DAY SUPPLY5Active cetirizine (ZyrTEC) 5 MG chewable tablet Chew DailyActive norethindrone-ethinyl estradiol (Alyacen /35) 1-35 MG-MCG tablet Indications:Well woman exam with routine gynecological exam, control counselingTake 1 tablet by mouth in the morning. 84 tablet 5Active Estradiol (Estrace) 0.01 % cream Indications:Vaginitis, atrophicApply 0.25 g topically 2 (two) times a week Patient is to use 0.25 grams (pea-size amount) daily for 2 weeks and THEN twice weekly for maintenance. 42.5 g 5Active Alyacen 135 1-35 MG-MCG tablet Indications: control counselingTAKE 1 TABLET BY MOUTH EVERY DAY IN THE MORNING 84 tablet Discontinued(Reorder) Active Problems ProblemNoted DateDiagnosed OkrfOauniuhfil53/15/8082Nbngvkb81/15/2025Depression 08/04/2025Other chronic pain10/30/2020Chronic myeloid cftticnu66/10/2019 Encounters DateTypeDepartmentCare WgvuFmsqdspqsvq54/13/2025 2:00 PM ESTProcedure Visit [facility] [address] [place] [address] Greta López NP Well woman exam with routine gynecological exam; control counseling; Vaginitis, /13/2025amboo flowsheet [facility] [address] [place] [address] Greta López NP 08/05/2025 10:30 AM EDTOffice Visit [facility] [address] [place] [address] Cathi Harrington MD Hypertrophy of tonsils alone (Primary Dx); Tonsil stone08/05/2025amboo flowsheet [facility] [address] [place] [address] Cathi Harrington MD 08/05/2025Travelfrom Last 3 Months Family History RelationNameStatusCommentsFatherAliveMotherAlive Social History Tobacco UseTypesPacks/DayYears UsedDateSmoking Tobacco: Every DayCigarettes Smokeless Tobacco: Never Tobacco Cessation:Ready to Q uit: Not Asked; Counseling Given: Not Answered Alcohol UseStandard Drinks/WeekCommentsNever0 (1 standard drink = 0.6 oz pure alcohol)CommentsNoSex and Gender InformationValueDate RecordedSex Assigned at BirthNot on fileLegal NvaQcqjea01/15/2023 11:47 PM EDTGender IdentityNot on fileSexual OrientationNot on file Last Filed Vital Signs Vital SignReadingTime TakenCommentsBlood Fojkyoxs711/6810/02/2025 2:34 PM EST Bqgag0973 10:34 AM EDTTemperature--Respiratory Rate--Oxygen Saturation-- Inhaled Oxygen Concentration--Biizne91.1 kg (159 lb)10/02/2025 2:34 PM ESTHeight 177.8 cm (5' 10 )10/02/2025 2:34 PM ESTBody Mass Index22.8110/02/2025 2:34 PM EST Plan of Treatment Not on file Insurance Care Teams Team MemberRelationshipSpecialtyStart DateEnd Date Merrill Yadav MD [address] [place] [address], [address] [place] [address] PCP - GeneralFamily Medicine07/16/25
--- OUTSIDE RECORDS SUMMARY | 2025-10-02 19:24 | XMS_ITS ---
Author Organization [employer] s tem Address [facility]-[id number] [address] [place] [address] Care Team Providers Care Field Superintendent Name Role Phone Merrill Yadav MD Primary Care Provider [phone] Active Problems ProblemNoted DateDiagnosed DateOther chronic pain10/30/2020CML (chronic myeloid leukemia)08/29/2019DepressionAnxiety Current Treatment and Therapy Plans No current plan information found. Past Treatment and Therapy Plans No past plan information found. Lifetime Dose Tracking * ChemicalLifetime DoseAutomatic EntryManual OtulzHmtyazgzswu20 mGy10 mGy0 mGy
--- OUTSIDE RECORDS SUMMARY | 2025-10-02 19:24 | XMS_ITS | Encounter Summary ---
Author Organization [facility] Address [address] [place] [address] Care Team Providers Care Housing Management Representative Name Role Phone Merrill Yadav MD Primary Care Provider [phone] Encounter Details DateTypeDepartmentCare Team (Latest Contact Info)Nddgaruizgv56/13/2025amboo flowsheet [facility] [address] [address] Greta López, SURG NURSE [address] [place] [address] Social History Tobacco UseTypesPacks/DayYears UsedDateSmoking Tobacco: Every DayCigarettes Smokeless Tobacco: NeverAlcohol UseStandard Drinks/WeekCommentsNever0 (1 standard drink = 0.6 oz pure alcohol)CommentsNoSex and Gender InformationValueDate RecordedSex Assigned at BirthNot on fileLegal SexFemale 02/01/2023 11:47 PM EDTGender IdentityNot on fileSexual OrientationNot on file documented as of this encounter Plan of Treatment Not on file documented as of this encounter Visit Diagnoses Not on filedocumented in this encounter Care Teams Team MemberRelationshipSpecialtyStart DateEnd Date Merrill Yadav MD [address] [place] [address], [address] [place] [address] PCP - GeneralFamily Medicine07/16/25documented as of this encounter
--- OUTSIDE RECORDS SUMMARY | 2025-10-02 19:24 | XMS_ITS | Clinical Summary ---
Author Organization [employer] s tem Address [facility]-[id number] [address] 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 As needed.Active norethindrone-ethin estradioL (ALYACEN , 28,) 1-35 mg-mcg per tablet Take 1 tablet by mouth in the morning.Active furosemide (LASIX) 40 mg tablet TAKE 1 TABLET (40 MG TOTAL) BY MOUTH DAILY NEEDED (SWELLING). 20 tablet 5Active escitalopram (LEXAPRO) 20 mg tablet Take 1.5 tablets (30 mg total) by mouth in the morning. 135 tablet 5Active dasatinib (SpryceL) 80 mg chemo tablet Take 1 tablet by mouth daily 30 tablet 5Active gabapentin (NEURONTIN) 300 mg capsule Indications:Strain of left trapezius muscle, subsequent encounterTake 1 capsule (300 mg total) by mouth 3 (three) times a day. 270 capsule 5Active morphine (MS CONTIN) 15 mg 12 hr tablet Indications:CML (chronic myeloid leukemia) (CMS-HCC),Pain, cancerTake 1 tablet (15 mg total) by mouth 3 (three) times a day. Max Daily Amount: 45 mg 90 tablet 5Active oxyCODONE (ROXICODONE) 15 mg immediate release tablet Indications:CML (chronic myeloid leukemia) ([facility]),Pain, cancerTake 1 tablet (15 mg total) by mouth 5 (five) times a day. Max Daily Amount: 75 mg 150 tablet 5Active oxyCODONE (ROXICODONE) 15 mg immediate release tablet Indications:CML (chronic myeloid leukemia) ([facility]),Pain, cancerTake 1 tablet (15 mg total) by mouth 5 (five) times a day. Max Daily Amount: 75 mg 150 tablet Discontinued(Reorder) morphine (MS CONTIN) 15 mg 12 hr tablet Indications:CML (chronic myeloid leukemia) ([facility]),Pain, cancerTake 1 tablet (15 mg total) by mouth 3 (three) times a day. Max Daily Amount: 45 mg 90 tablet Discontinued(Reorder) Active Problems ProblemNoted DateDiagnosed DateOther chronic pain10/30/2020CML (chronic myeloid leukemia)08/29/2019DepressionAnxiety Encounters DateTypeDepartmentCare TryyCboomqvqbyf44/30/2025Orders Only [facility] Murphy [facility] - Medical Oncology [facility] [place] [address] Luke Orona MD CML (chronic myeloid leukemia) ([facility]); Pain, mwxvsk5708/19/2025Orders Only [facility], A Department of [address] [address] Luke Orona MD CML (chronic myeloid leukemia) ([facility]); Pain, pizrfv9807/25/2025Telephone [facility] [address] [place] [address] Corie Tovar, [facility] Prior Authorization (DASATINIB)07/23/2025Orders Only [facility], A Department of [facility] [address] [place] [address] Luke Orona MD 07/22/2025Orders Only Marci Johnson [facility] - Medical Oncology [address] [place] [address] uLke Orona MD 07/22/2025Documentation Marci L [facility] - Medical Oncology [address] [place] [address] Alice Lauren RN 07/18/2025Orders Only Mar[facility] Johnson [facility] - Medical Oncology [address] [place] [address] Luke Orona MD CML (chronic myeloid leukemia) ([facility]); Pain, zpawha8007/11/2025 10:30 AM EDTOffice Visit [facility] [address] [facility] [address] [place] [address] Merrill Yadav MD Tonsillitis (Primary Dx); Chronic tonsillar inpnjzujsct91/22/2025Travelfrom Last 3 Months Immunizations ImmunizationAdministration DatesNext GkbUScH4901/16/1996,11/26/1992,1991, 1991,1991HPV Ovuwvioorkqo10/01/2019Hepatitis B001/13/2004,06/23/2003, 05/20/2003HiB1991,1991,1991IPV01/16/1996,11/26/1992,1991 ,1991Influenza, Injectable, Mdck, Preservative Free, Quad08/27/2020 Influenza, Injectable, Kzlsumopqjwu21/01/2019Influenza, Osjvzsweyku35/06/2016, 10/26/2012MMR01/16/1996,08/04/1992Meningococcal Mewtqjdel48/22/2009Tdap 01/13/2004 Social History Tobacco UseTypesPacks/DayYears UsedDateSmoking Tobacco: Some DaysCigarettes Smokeless Tobacco: Never Tobacco Cessation:Ready to Q uit: Not Asked; Counseling Given: No Alcohol UseStandard Drinks/WeekCommentsNot Currently0 (1 standard drink = 0.6 oz pure alcohol)Social Connection and Isolation PanelAnswerDate RecordedIn a typical week, how many times do you talk on the phone with family, friends, or neighbors?More than three times a week07/28/2022How often do you get together with friends or relatives?Once a week07/28/2022How often do you attend spiritism or anabaptism services?1 to 4 times per year2Do you belong to any clubs or organizations such as spiritism groups, unions, fraternal or athletic groups, or school groups?No07/28/2022How often do you attend meetings of the clubs or organizations you belong to?Never07/28/2022re you , , , , never , or living with a partner?Cymsbzf8807/28/2022UDIT-C AnswerDate RecordedQ1: How often do you have a drink containing alcohol?Never 07/28/2022Q2: How many drinks containing alcohol do you have on a typical day when you are drinking?Patient does not drink07/28/2022Q3: How often do you have six or more drinks on one occasion?Never07/28/2022verall Financial Resource Strain (CARDIA)AnswerDate RecordedHow hard is it for you to pay for the very basics like food, housing, medical care, and heating?Not hard at all05/08/2024 PHQ-2AnswerDate RecordedTotal Kbdaa928[facility] [place] of Occupational Health - Occupational Stress QuestionnaireAnswerDate RecordedDo you feel stress - tense, restless, nervous, or anxious, or unable to sleep at night because your mind is troubled all the time - these days?To some okmafg2007/28/2022Exercise Vital SignAnswerDate RecordedOn average, how many days per week do you engage in moderate to strenuous exercise (like a brisk walk)?1 day07/28/2022n average, how many minutes do you engage in exercise at this level?10 min07/28/2022RAPARE - TransportationAnswerDate RecordedIn the past 12 months, has lack of transportation kept you from medical appointments or from getting medications?No 05/08/2024In the past 12 months, has lack of transportation kept you from meetings, work, or from getting things needed for daily living?No05/08/2024 Housing InstabilityAnswerDate RecordedAre you worried or concerned that in the next two months you may not have stable housing that you own, rent or stay in as a part of a household?No05/08/2024hildcareAnswerDate RecordedDo problems getting childcare center director make it difficult for you to work or study?No07/28/2022 EmploymentAnswerDate RecordedDo you need help finding a local career center and/or a training program?No07/28/2022Hunger ScreeningAnswerDate RecordedWithin the past 12 months we worried whether our food would run out before we got money to buy more.Never True07/11/2025Within the past 12 months the food we bought just didn't last and we didn't have money to get more.Never True07/11/2025 Purpose - LifeAnswerDate RecordedI have a purpose and direction in my life. Strongly Agree07/28/2022EducationAnswerDate RecordedWhat is the highest level of school you have completed or the highest degree you have received?Associate degree: academic ukcnoec6002/08/2021CommentsNoSex and Gender Information ValueDate RecordedSex Assigned at BirthNot on fileLegal OqbDsbjqq22/06/2015 11:52 AM EDTGender IdentityNot on fileSexual OrientationNot on file Last Filed Vital Signs Vital SignReadingTime TakenCommentsBlood Hczttwii080/7208 10:27 AM EDT Nspbz242307/11/2025 10:27 AM OONYxrgamtafft23.7 ??C (98.1 ??F)07/11/2025 10:27 AM EDTRespiratory Rbow837605/29/2025 9:56 AM EDTOxygen Cmozsgggjj92%07/11/2025 10:27 AM EDTInhaled Oxygen Concentration--Ipkxjp37.2 kg (154 lb 12.8 oz)07/11/2025 10:27 AM ZTHIdqqze813.8 cm (5' 10 )07/11/2025 10:27 AM EDTBody Mass Index22.21 07/11/2025 10:27 AM EDT Plan of Treatment DateTypeDepartmentCare Team (Latest Contact Info)Rytqwzmpefn86/29/2026 10:00 AM ESTOffice Visit [facility] Murphy [facility] - Medical Oncology [address] [place] [phone] Luke Orona MD [facility] [place] [address] Health MaintenanceDue DateLast DoneCommentsTobacco Zxkbcecfoc1991Pap Smear 2012DTaP,Tdap and Td Vaccines (7 - Td or Tdap), 01/16/1996, 11/26/1992, Additional history existsInfluenza Klvpjea0107/21/2025 08/27/2020, 10/04/2019, 09/20/2019, Additional history existsAdult BMI Screening Depression Eauhvouwd85Tobacco Screening Goals GoalPatient Goal TypeAssociated ProblemsRecent ProgressPatient-Stated?Author Discharge Corie Smith, RN Note: Evaluation of progress towards goal: Pt requests safe transition home. Medical Devices Not on file Insurance Advance Directives * Full Code (Latest Code Status on File) Date ActivatedDate UhqqtplldctRcodhjoc86/1/2019 2:24 AM08/23/2019 5:11 PM Care Teams Team MemberRelationshipSpecialtyStart DateEnd Date Merrill Yadav MD [address] [place] [address], [address] [place] [address] PCP - GeneralPediatric05/14/18
--- OUTSIDE RECORDS SUMMARY | 2025-10-02 19:24 | XMS_ITS | Encounter Summary ---
Author Organization [employer] Address [facility]-[id number] [address] [place] [address] Care Team Providers Care Academic Interventionist Name Role Phone Merrill Yadav MD Primary Care Provider [phone] Encounter Details DateTypeDepartmentCare Team (Latest Contact Info)Jaimhfeppys33/30/2025Orders Only Marci Murphy [facility] - Medical Oncology [address] [place] [address] [place] [address] [place] [address] [address] [place] [address] [phone] CML (chronic myeloid leukemia) ([facility]); Pain, cancer Social History Tobacco UseTypesPacks/DayYears UsedDateSmoking Tobacco: Some DaysCigarettes Smokeless Tobacco: NeverAlcohol UseStandard Drinks/WeekCommentsNot Currently0 (1 standard drink = 0.6 oz pure alcohol)Social Connection and Isolation PanelAnswer Date RecordedIn a typical week, how many times do you talk on the phone with family, friends, or neighbors?More than three times a week07/28/2022How often do you get together with friends or relatives?Once a week07/28/2022How often do you attend zoroastrianism or yarsani services?1 to 4 times per year2Do you belong to any clubs or organizations such as zoroastrianism groups, unions, fraternal or athletic groups, or school groups?No07/28/2022How often do you attend meetings of the clubs or organizations you belong to?Never07/28/2022re you , , , , never , or living with a partner? 07/28/2022UDIT-CAnswerDate RecordedQ1: How often do you have a drink containing alcohol?Never07/28/2022Q2: How many drinks containing alcohol do you have on a typical day when you are drinking?Patient does not drink07/28/2022Q3: How often do you have six or more drinks on one occasion?Never07/28/2022verall Financial Resource Strain (CARDIA)AnswerDate RecordedHow hard is it for you to pay for the very basics like food, housing, medical care, and heating?Not hard at all 05/08/2024HQ-2AnswerDate RecordedTotal Udheh381[facility] [place] of Occupational Health - Occupational Stress QuestionnaireAnswerDate RecordedDo you feel stress - tense, restless, nervous, or anxious, or unable to sleep at night because yourmind is troubled all the time - these days?To some weelnr4107/28/2022 Exercise Vital SignAnswerDate RecordedOn average, how many days per week do you engage in moderate to strenuous exercise (like a brisk walk)?1 day07/28/2022n average, how many minutes do you engage in exercise at this level?10 min 07/28/2022RAPARE - TransportationAnswerDate RecordedIn the past 12 months, has lack of transportation kept you from medical appointments or from getting medications?No05/08/2024In the past 12 months, has lack of transportation kept you from meetings, work, or from getting things needed for daily living?No 05/08/2024Housing InstabilityAnswerDate RecordedAre you worried or concerned that in the next two months you may not have stable housing that you own, rent or stay in as a part of a household?No05/08/2024hildcareAnswerDate RecordedDo problems getting child and family therapist make it difficult for you to work or study?No 07/28/2022EmploymentAnswerDate RecordedDo you need help finding a local career center and/or a training program?No07/28/2022Hunger ScreeningAnswerDate Recorded Within the past 12 months we worried whether our food would run out before we got money to buy more.Never True07/11/2025Within the past 12 months the food we bought just didn't last and we didn't have money to get more.Never True 07/11/2025Purpose - LifeAnswerDate RecordedI have a purpose and direction in my life.Strongly Agree07/28/2022EducationAnswerDate RecordedWhat is the highest level of school you have completed or the highest degree you have received? Associate degree: academic /22/2021CommentsNoSex and Gender InformationValueDate RecordedSex Assigned at BirthNot on fileLegal SexFemale 06/25/2015 11:52 AM EDTGender IdentityNot on fileSexual OrientationNot on file documented as of this encounter Plan of Treatment DateTypeDepartmentCare Team (Latest Contact Info)Kuykvzawhip07/29/2026 10:00 AM ESTOffice Visit [facility] [address] [place] [address] Luke Orona MD [address] [place] [address] [address] [place] [address] [phone] documented as of this encounter Goals GoalPatient Goal TypeAssociated ProblemsRecent ProgressPatient-Stated?Author Discharge Corie Smith, RN Note: Evaluation of progress towards goal: Pt requests safe transition home. documented as of this encounter Visit Diagnoses Diagnosis CML (chronic myeloid leukemia) ([facility]) Chronic myeloid leukemia, without mention of having achieved remission Pain, cancer documented in this encounter Additional Health Concerns AssessmentNoted TimePHQ-9 Depression Total Score: 10:27 AM EDT documented as of this encounter Care Teams Team MemberRelationshipSpecialtyStart DateEnd Date Merrill Yadav MD [address] [place] [address], [address] [place] [address] PCP - GeneralPediatrics6/documented as of this encounter
== END 2025-10-02 19:14 | disposition home or self-care (01) ==
LOC: LAB 19:13
PROVIDERS: PCP Internal Medicine; Visit Provider Nurse Practitioner Family
DX: Z01.419 Encounter for gynecological examination (general) (routine) without abnormal findings (principal)
CPT/HCPCS: 87624; 88175